=== PATIENT | female | born 1945 | race Caucasian/White ===

== ENCOUNTER → 2020-04-08 | Outpatient (CLI) | payer MEDICARE, BC ==
--- NOTE | 2020-04-08 14:20 | XR ---
EXAMINATION TYPE: XR Hip LT and AP Pelvis DATE OF EXAM: 04/08/2020 COMPARISON: None HISTORY: Pain TECHNIQUE: A single AP view of the pelvis is obtained. Two views of the left hip are obtained. FINDINGS: There is no acute fracture/dislocation evident in the pelvis. The hip and sacroiliac join ts appear symmetric and unremarkable. The overlying soft tissue appears unremarkable. Two views of left hip show no acute fracture or dislocation. No focal lytic or sclerotic lesion seen in the proximal left femur. The overlying soft tissue is unremarkable. Bone mineralization is redu leonel. Vacuum phenomenon present at the left sacroiliac joint. Phlebolith noted in the left hemipelvis. Calcification is present at the gluteus tendon insertion at the greater trochanter. Postop changes a re noted to the lumbosacral spine, there is spinal curvature. IMPRESSION: There is no acute fracture or dislocation in the pelvis or left hip. There may be calcif ic tendinitis. Postop changes to the lumbosacral spine, osteopenia.
--- NOTE | 2020-04-08 14:23 | XR ---
Lumbar spine HISTORY: Low back pain 3 views the lumbar spine correlated prior exam 03/12/2016 There is no significant interval change. Postop changes show stable appearance, spinal curvature, deg enerative disc change as on prior exam. Posterior fusion L3-S1 is noted. There is retrolisthesis grad e 1 L2-3 with associated loss of disc height. Anterolisthesis grade 1 L5-S1. Bone mineralization is r educed. Loss of disc height also present L5-S1. Laminectomies are present at L3, L4 and L5. IMPRESSION: Degenerative disc disease, stable postoperative findings. Osteopenia.
== END | disposition home or self-care (01) ==
LOC: RADXRMAIN 12:04
PROVIDERS: ATTEND Midwife
DX: M51.36 Other intervertebral disc degeneration, lumbar region (principal); Z98.890 Other specified postprocedural states; M85.88 Other specified disorders of bone density and structure, other site
CPT/HCPCS: 72100; 73502

== ENCOUNTER → 2021-05-07 | Outpatient (CLI) | payer MEDICARE, BC ==
--- NOTE | 2021-05-07 14:46 | MM ---
Reason for exam: clinical finding. Last mammogram was performed 10 years and 6 months ago. History: Patient is postmenopausal. Family history of breast cancer in sister at age 75 and breast cancer in paternal aunt at age 56. Indicated problem(s): palpable abnormality in the left breast. Physical Findings: Nurse Summary: 0.5cm nodule in the left breast at 3 o'clock (nurse TM). MG 3D Diag Mammo W/Cad NISA Bilateral CC and MLO view(s) were taken. Prior study comparison: November 11, 2010, bilateral digital screening mammogram. November 13, 2008, bilateral digital screening mammogram. The breast tissue is extremely dense which could obscure a lesion on mammography. There are benign appearing round vascular calcifications bilaterally. There is no discrete abnormality. These results were verbally communicated with the patient and result sheet given to the patient on 05/07/21. ASSESSMENT: Incomplete: need additional imaging evaluation, BI-RAD 0 RECOMMENDATION: Ultrasound of the left breast. (palpable)
--- NOTE | 2021-05-07 14:47 | USB ---
Reason for exam: additional evaluation requested from abnormal screening. History: Patient is postmenopausal. Family history of breast cancer in sister at age 75 and breast cancer in paternal aunt at age 56. US Breast Limited LT Left limited breast ultrasound including focal area of concern, retroareolar and axilla demonstrates no cystic or solid lesion seen. These results were verbally communicated with the patient and result sheet given to the patient on 05/07/21. ASSESSMENT: Negative, BI-RAD 1 RECOMMENDATION: Routine screening mammogram of both breasts in 1 year. Manage patient on a clinical basis.
== END | disposition home or self-care (01) ==
LOC: RADMAMWWP 10:14
PROVIDERS: ATTEND Family Medicine
DX: R92.1 Mammographic calcification found on diagnostic imaging of breast (principal); Z80.3 Family history of malignant neoplasm of breast; Z78.0 Asymptomatic menopausal state
CPT/HCPCS: 77066; 76642; G0279; 77062

== ENCOUNTER 2021-06-16 11:57 | Emergency (ER) | payer MEDICARE, BC ==
[2021-06-16 12:17] VITALS: BP 145/76; PULSE 66; RESP 18; TEMP 98.3
[2021-06-16] MEDS ORDERED: KETOROLAC 15 MG/ML 1 ML VIAL IVP STA (14:33)
[2021-06-16 14:58] LABS: Basophils # (A) 0.1 k/uL (0-0.2); Basophils % (A) 2 %; Eosinophils # (A) 0.2 k/uL (0-0.7); Eosinophils % (A) 5 %; HCT 39.9 % (34.0-46.0); HGB 12.8 gm/dL (11.4-16.0); Lymphocytes # (A) 0.4 k/uL (1.0-4.8); Lymphocytes % (A) 10 %; MCH 29.5 pg (25.0-35.0); MCHC 32.1 g/dL (31.0-37.0); MCV 91.8 fL (80.0-100.0); Mean Platelet Volume 7.1; Monocytes # (A) 0.2 k/uL (0-1.0); Monocytes % (A) 6 %; Neutrophils # (A) 3.1 k/uL (1.3-7.7); Neutrophils % (A) 76 %; Platelet Count 195 k/uL (150-450); RBC 4.35 m/uL (3.80-5.40); RDW 12.8 % (11.5-15.5); WBC 4.1 k/uL (3.8-10.6)
[2021-06-16 15:07] LABS: Albumin 3.9 g/dL (3.5-5.0); Calcium 9.4 mg/dL (8.4-10.2); Magnesium 2.2 mg/dL (1.6-2.3); Total Bilirubin 0.3 mg/dL (0.2-1.3); Total Protein 6.1 g/dL (6.3-8.2)
[2021-06-16 15:18] LABS: INR 0.9 (<1.2); Prothrombin Time 9.9 sec (9.0-12.0)
--- NOTE | 2021-06-16 15:33 | XR ---
EXAMINATION TYPE: XR chest 2V DATE OF EXAM: 06/16/2021 COMPARISON: Chest x-ray dated 08/13/2014 HISTORY: Difficulty breathing TECHNIQUE: Frontal and lateral views of the chest are obtained. FINDINGS: There is no focal air space opacity, pleural effusion, or pneumothorax seen. The cardiac silhouette size is within normal limits. Patient is rotated towards the right. Apical pleural thicken ing is again seen. Postop change noted to the lumbar spine. The osseous structures are intact. IMPRESSION: No acute cardiopulmonary process.
--- NOTE | 2021-06-16 15:34 | XR ---
AP pelvis HISTORY: Swelling, lymphedema Frontal view of the pelvis is submitted on a single image. Postop changes are noted to the lumbosacral spine. There is a spinal curvature. Bone mineralization m ildly reduced. Joint spaces and alignment appear maintained. Probable vascular calcifications noted i n the pelvis. IMPRESSION: Postop changes. Suspect low bone mineralization. Rotated exam.
[2021-06-16] MEDS ORDERED: SODIUM CHLORIDE 0.9% 500 ML 500 ML IV ONE (15:35)
--- NOTE | 2021-06-16 15:36 | XR ---
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 Retrolisthesis grade 1 L2-3. Lumbar vertebral bodies show preserved height. Bone mineralization i s reduced. Intervertebral disc height is also reduced L2-3 through L5-S1, spondylosis is present lauren cially at L2-3. Multilevel laminectomies present L3-L4 and L5. IMPRESSION: Degenerative disc disease, scoliosis, postop change. Low bone mineralization. Retrolisthe sis L2-3. Additional findings above.
--- NOTE | 2021-06-16 15:43 | ED ---
General Adult HPI - General Chief complaint: Recheck/Abnormal Lab/Rx Stated complaint: lt sided swelling Time Seen by Provider: 06/16/21 14:00 Source: patient, RN notes reviewed, old records reviewed Mode of arrival: ambulatory Limitations: no limitations - History of Present Illness Initial comments: This is a 75-year-old female who presents emergency Department with a mass since last Wednesday on her neck on the left anterior aspect. Patient also has some swelling to the left leg. Patient has also been a little more tired over the last week. Patient has had no fever or chills patient denies headache patient denies any numbness weakness. Patient said chest pain difficulty breathing shortness of breath. Patient has chronic lower back pain and she states that is been giving her a lot of grief lately but states nothing different than it has been. Patient denies any injury or fall. Patient denies any dysuria hematuria urinary frequency. Patient denies abdominal pain patient denies nausea vomiting diarrhea. - Related Data Home Medications Medication Instructions Recorded Confirmed Levothyroxine Sodium [Synthroid] 100 mcg PO DAILY 05/21/14 06/16/21 ALPRAZolam [Xanax] 0.5 mg PO BID PRN 12/21/14 06/16/21 Acetaminophen-Codeine 300-30mg 1 tab PO Q6H PRN 06/16/21 06/16/21 [Tylenol w/codeine #3] Amoxic-Pot Clav 875-125Mg 1 tab PO Q12H 06/16/21 06/16/21 [Augmentin 875-125] Calcium Carbonate [Calcium] 600 mg PO BID 06/16/21 06/16/21 Cholecalciferol [Vitamin D3 (25 50 mcg PO DAILY 06/16/21 06/16/21 Mcg = 1000 Iu)] Cyanocobalamin (Vitamin B-12) 500 mcg PO DAILY 06/16/21 06/16/21 [Vitamin B-12] Latanoprost/Pf [Latanoprost 0.005% 1 drop BOTH EYES HS 06/16/21 06/16/21 Eye Drop] Magnesium 250 mg PO DAILY 06/16/21 06/16/21 Multivitamins, Thera [Multivitamin 1 tab PO DAILY 06/16/21 06/16/21 (formulary)] [place]-3 Fatty Acids/Fish Oil [Fish 1 cap PO DAILY 06/16/21 06/16/21 Oil 1,000 mg Softgel] Vitamin B Complex 1 cap PO DAILY 06/16/21 06/16/21 Vitamin C/Biotin [Hair, Skin and 1 tab PO DAILY 06/16/21 06/16/21 Nails] Zinc 50 mg PO DAILY 06/16/21 06/16/21 Allergies Allergy/AdvReac Type Severity Reaction Status Date / Time No Known Allergies Allergy Verified 06/16/21 17:19 Review of Systems ROS Statement: Those systems with pertinent positive or pertinent negative responses have been documented in the HPI. ROS Other: All systems not noted in ROS Statement are negative. Past Medical History Past Medical History: GERD/Reflux, Thyroid Disorder Additional Past Medical History / Comment(s): back pain History of Any Multi-Drug Resistant Organisms: None Reported Past Surgical History: Back Surgery Additional Past Surgical History / Comment(s): BACK SX-08-09-14. BILAT CATARACT SX. BLE VARICOSE VEIN SX. COLONOSCOPY. RT RETINAL SX Past Anesthesia/Blood Transfusion Reactions: No Reported Reaction Past Psychological History: Anxiety Smoking Status: Never smoker Past Alcohol Use History: None Reported Past Drug Use History: None Reported General Exam - General Exam Comments Initial Comments: GENERAL: Patient is well-developed and well-nourished. Patient is nontoxic and well- hydrated and is in no acute distress. ENT: Neck is soft and supple. No significant lymphadenopathy is noted. Oropharynx is clear. Moist mucous membranes. Neck has full range of motion without eliciting any pain. There is a mass on the left anterior aspect of the neck measuring about 3 cm in diameter. It is not tender and there is no redness EYES: The sclera were anicteric and conjunctiva were pink and moist. Extraocular movements were intact and pupils were equal round and reactive to light. Eyelids were unremarkable. PULMONARY: Unlabored respirations. Good breath sounds bilaterally. No audible rales rhonchi or wheezing was noted. CARDIOVASCULAR: There is a regular rate and rhythm without any murmurs gallops or rubs. ABDOMEN: Soft and nontender with normal bowel sounds. SKIN: Skin is clear with no lesions or rashes and otherwise unremarkable. NEUROLOGIC: Patient is alert and oriented x3. Cranial nerves II through XII are grossly intact. Motor and sensory are also intact. Normal speech, volume and content. Symmetrical smile. MUSCULOSKELETAL: Normal extremities with adequate strength and full range of motion. Patient has calf tenderness on the left and swelling to the leg with 1+ edema LYMPHATICS: No significant lymphadenopathy is noted PSYCHIATRIC: Normal psychiatric evaluation. Limitations: no limitations Course Vital Signs 06/16/21 12:13 Temperature 98.3 F Pulse Rate 66 Respiratory 18 Rate Blood Pressure 145/76 O2 Sat by Pulse 98 Oximetry Medical Decision Making - Medical Decision Making EKG shows normal sinus rhythm at 65 bpm DE interval 198 QRSs 82 QT interval 396 QTC is 411. Patient's EKG shows no ST segment elevation or depression. X-ray of the chest showed no acute abnormality. X-ray of the pelvis showed no acute normalities. X-ray lumbar spine showed no acute abnormality. CT of the soft tissues of the neck showed a large mass on the right side which appeared to be a lymph node. I spoke with Isiah the physician clinical trials assistant for Dr. Galaviz and he will follow-up with the patient tomorrow and try to get her an ENT appointment. Patient is already on Augmentin. - Lab Data Result diagrams: 06/16/21 14:48 06/16/21 14:48 Lab Results 06/16/21 06/16/21 06/16/21 Range/Units 14:48 14:48 14:48 WBC 4.1 (3.8-10.6) k/uL RBC 4.35 (3.80-5.40) m/uL Hgb 12.8 (11.4-16.0) gm/dL Hct 39.9 (34.0-46.0) % MCV 91.8 (80.0-100.0) fL MCH 29.5 (25.0-35.0) pg MCHC 32.1 (31.0-37.0) g/dL RDW 12.8 (11.5-15.5) % Plt Count 195 (150-450) k/uL MPV 7.1 Neutrophils % 76 % Lymphocytes % 10 % Monocytes % 6 % Eosinophils % 5 % Basophils % 2 % Neutrophils # 3.1 (1.3-7.7) k/uL Lymphocytes # 0.4 L (1.0-4.8) k/uL Monocytes # 0.2 (0-1.0) k/uL Eosinophils # 0.2 (0-0.7) k/uL Basophils # 0.1 (0-0.2) k/uL PT 9.9 (9.0-12.0) sec INR 0.9 (<1.2) APTT 23.0 (22.0-30.0) sec Sodium 136 L (137-145) mmol/L Potassium 4.0 (3.5-5.1) mmol/L Chloride 100 (98-107) mmol/L Carbon Dioxide 30 (22-30) mmol/L Anion Gap 6 mmol/L BUN 33 H (7-17) mg/dL Creatinine 0.76 (0.52-1.04) mg/dL Est GFR (CKD-EPI)AfAm 88 (>60 ml/min/1.73 sqM) Est GFR (CKD-EPI)NonAf 76 (>60 ml/min/1.73 sqM) Glucose 123 H (74-99) mg/dL Calcium 9.4 (8.4-10.2) mg/dL Magnesium 2.2 (1.6-2.3) mg/dL Total Bilirubin 0.3 (0.2-1.3) mg/dL AST 46 H (14-36) U/L ALT 23 (4-34) U/L Alkaline Phosphatase 54 (38-126) U/L Total Protein 6.1 L (6.3-8.2) g/dL Albumin 3.9 (3.5-5.0) g/dL Disposition Clinical Impression: Cervical lymphadenopathy Disposition: HOME SELF-CARE Condition: Good Instructions (If sedation given, give patient instructions): Lymphadenopathy (ED) Is patient prescribed a controlled substance at d/c from ED?: No Referrals: Kayden Galaviz MD [Primary Care Provider] - 1-2 days Time of Disposition: 18:36
--- NOTE | 2021-06-16 16:16 | US ---
EXAMINATION TYPE: US venous doppler duplex LE LT DATE OF EXAM: 06/16/2021 4:07 PM COMPARISON: NONE CLINICAL HISTORY: Swelling or calf pain. edema left foot and ankle SIDE PERFORMED: left TECHNIQUE: The lower extremity deep venous system is examined utilizing real time linear array sonog leisa with graded compression, doppler sonography and color-flow sonography. VESSELS IMAGED: Common Femoral Vein Deep Femoral Vein Femoral Vein Popliteal Vein Small Saphenous Vein * Proximal Calf Veins (* superficial vessels) Left Leg: no evidence of DVT IMPRESSION: 1. Left lower extremity ultrasound negative for deep venous thrombosis.
--- NOTE | 2021-06-16 17:50 | CT ---
EXAMINATION TYPE: CT soft tissue neck w con DATE OF EXAM: 06/16/2021 COMPARISON: None HISTORY: Left anterior neck swelling. CT DLP: 161.5 mGycm Automated exposure control for dose reduction was used. CONTRAST: Performed with IV Contrast, patient injected with 100 mL of Isovue 300. Images obtained from the aortic arch to the top of the orbits with IV contrast. There is no evidence of orbital mass. Orbital margins are intact. There is fairly normal aeration of the paranasal sinuses. Maxilla is intact. Nasal bone is intact. Zygomatic arches appear normal. The mandibular ring is intact. The submandibular salivary glands are fairly symmetric. The parotid glands appear symmetric. Epiglott is appears normal. The tongue appears intact. Prevertebral soft tissues are intact. Tonsils and adeno ids are within normal limits. There is no evidence of pharyngeal mass. There is normal enhancement of the carotid arteries and jugular veins. There is 4.6 cm rounded soft tissue mass at the base of the neck anteriorly on the left side. There i s anterior and medial displacement of the jugular vein and carotid artery. There is anterior displace ment of the sternocleidomastoid mastoid muscle. Mass extends to the thoracic inlet. This is consisten t with an enlarged lymph node. There is some pleural and pulmonary scarring at the lung apices bilate rally. There is no pneumothorax. IMPRESSION: Anterior left side of neck mass is probably an enlarged lymph node. No other significant adenopathy s een.
== END 2021-06-16 19:02 | disposition home or self-care (01) ==
LOC: EC 11:57
DX: R59.0 Localized enlarged lymph nodes (principal); M79.89 Other specified soft tissue disorders; K21.9 Gastro-esophageal reflux disease without esophagitis; E07.9 Disorder of thyroid, unspecified
CPT/HCPCS: 99284 ×2; 96374 ×2; 36415; 93005; 80053; 83735; 85025; 85610; 85730; 72110; 72170; 71046; 93971; 70491; J1885; Q9967

== ENCOUNTER 2021-06-21 22:13 | Inpatient (IN) | payer MEDICARE, BC ==
[2021-06-21] MEDS ORDERED: SODIUM CHLORIDE 0.9% 500 ML 500 ML IV STA (22:42)
[2021-06-21] MEDS ORDERED: KETOROLAC 15 MG/ML 1 ML VIAL IVP STA (22:42)
[2021-06-21] MEDS ORDERED: ONDANSETRON 4 MG/2 ML VIAL IVP STA (22:42)
--- NOTE | 2021-06-21 23:00 | ED ---
Nausea/Vomiting/Diarrhea HPI - General Chief complaint: Nausea/Vomiting/Diarrhea Stated complaint: weakness,vomiting Time Seen by Provider: 06/21/21 22:26 Source: patient Mode of arrival: wheelchair Limitations: no limitations - History of Present Illness MD complaint: nausea, vomiting Onset/Timin -: days(s) Description of Vomiting: food contents Associated Abdominal Pain: No Severity scale (1-10): 0 Improves with: none Worsens with: none - Related Data Home Medications Medication Instructions Recorded Confirmed Levothyroxine Sodium [Synthroid] 100 mcg PO DAILY 05/21/14 06/22/21 ALPRAZolam [Xanax] 0.5 mg PO BID PRN 12/21/14 06/22/21 Acetaminophen-Codeine 300-30mg 1 tab PO Q6H PRN 06/16/21 06/22/21 [Tylenol w/codeine #3] Amoxic-Pot Clav 875-125Mg 1 tab PO Q12H 06/16/21 06/22/21 [Augmentin 875-125] Calcium Carbonate [Calcium] 600 mg PO BID 06/16/21 06/22/21 Cholecalciferol [Vitamin D3 (25 50 mcg PO DAILY 06/16/21 06/22/21 Mcg = 1000 Iu)] Cyanocobalamin (Vitamin B-12) 500 mcg PO DAILY 06/16/21 06/22/21 [Vitamin B-12] Latanoprost/Pf [Latanoprost 0.005% 1 drop BOTH EYES HS 06/16/21 06/22/21 Eye Drop] Magnesium 250 mg PO DAILY 06/16/21 06/22/21 Multivitamins, Thera [Multivitamin 1 tab PO DAILY 06/16/21 06/22/21 (formulary)] [place]-3 Fatty Acids/Fish Oil [Fish 1 cap PO DAILY 06/16/21 06/22/21 Oil 1,000 mg Softgel] Vitamin B Complex 1 cap PO DAILY 06/16/21 06/22/21 Vitamin C/Biotin [Hair, Skin and 1 tab PO DAILY 06/16/21 06/22/21 Nails] Zinc 50 mg PO DAILY 06/16/21 06/22/21 Allergies Allergy/AdvReac Type Severity Reaction Status Date / Time No Known Allergies Allergy Verified 06/21/21 22:32 Review of Systems ROS Statement: Those systems with pertinent positive or pertinent negative responses have been documented in the HPI. ROS Other: All systems not noted in ROS Statement are negative. Constitutional: Denies: fever, chills Respiratory: Denies: cough, dyspnea Cardiovascular: Reports: edema (L ankle). Denies: chest pain, palpitations, syncope Gastrointestinal: Reports: nausea, vomiting. Denies: abdominal pain, diarrhea, hematemesis, melena, hematochezia Genitourinary: Denies: dysuria, hematuria Musculoskeletal: Reports: back pain (Chronic) Skin: Denies: rash Neurological: Denies: headache, weakness, numbness Past Medical History Past Medical History: GERD/Reflux, Thyroid Disorder Additional Past Medical History / Comment(s): back pain History of Any Multi-Drug Resistant Organisms: None Reported Past Surgical History: Back Surgery Additional Past Surgical History / Comment(s): BACK SX-08-09-14. BILAT CATARACT SX. BLE VARICOSE VEIN SX. COLONOSCOPY. RT RETINAL SX Past Anesthesia/Blood Transfusion Reactions: No Reported Reaction Past Psychological History: Anxiety Smoking Status: Never smoker Past Alcohol Use History: None Reported Past Drug Use History: None Reported - Past Family History Father Family Medical History: CVA/TIA, Dementia, Thyroid Disorder Mother Family Medical History: Dementia, Hypertension General Exam Limitations: no limitations General appearance: alert, in no apparent distress Head exam: Present: atraumatic, normocephalic Eye exam: Present: normal appearance. Absent: scleral icterus, conjunctival injection Neck exam: Present: full ROM, other (Left anterior neck swelling underlying the sternocleidomastoid). Absent: meningismus Respiratory exam: Present: normal lung sounds bilaterally. Absent: respiratory distress, wheezes, rales, rhonchi, stridor Cardiovascular Exam: Present: regular rate, normal rhythm, normal heart sounds. Absent: systolic murmur, diastolic murmur, rubs, gallop GI/Abdominal exam: Present: soft. Absent: distended, tenderness, guarding, rebound, rigid, mass Extremities exam: Present: normal inspection, normal capillary refill. Absent: pedal edema, calf tenderness Back exam: Present: normal inspection. Absent: CVA tenderness (R), CVA tenderness (L) Neurological exam: Present: alert Skin exam: Present: warm, dry, intact, normal color. Absent: rash Course Vital Signs 07/24/21 07/24/21 07/25/21 22:20 23:38 04:00 Temperature 98.6 F Pulse Rate 70 71 88 Respiratory 16 16 17 Rate Blood Pressure 195/97 147/62 149/88 O2 Sat by Pulse 98 98 98 Oximetry 06/22/21 06:43 Temperature Pulse Rate 72 Respiratory 17 Rate Blood Pressure 137/77 O2 Sat by Pulse 98 Oximetry Medical Decision Making - Lab Data Result diagrams: 06/22/21 04:42 06/22/21 04:41 Lab Results 06/21/21 06/21/21 06/21/21 Range/Units 22:53 22:53 23:49 WBC 8.0 (3.8-10.6) k/uL RBC 4.15 (3.80-5.40) m/uL Hgb 13.0 (11.4-16.0) gm/dL Hct 37.1 (34.0-46.0) % MCV 89.2 (80.0-100.0) fL MCH 31.3 (25.0-35.0) pg MCHC 35.1 (31.0-37.0) g/dL RDW 12.1 (11.5-15.5) % Plt Count 221 (150-450) k/uL MPV 7.5 Neutrophils % 90 % Lymphocytes % 4 % Monocytes % 5 % Eosinophils % 0 % Basophils % 0 % Neutrophils # 7.2 (1.3-7.7) k/uL Lymphocytes # 0.3 L (1.0-4.8) k/uL Monocytes # 0.4 (0-1.0) k/uL Eosinophils # 0.0 (0-0.7) k/uL Basophils # 0.0 (0-0.2) k/uL Sodium 118 L* (137-145) mmol/L Potassium 3.9 (3.5-5.1) mmol/L Chloride 84 L (98-107) mmol/L Carbon Dioxide 24 (22-30) mmol/L Anion Gap 10 mmol/L BUN 10 (7-17) mg/dL Creatinine 0.46 L (0.52-1.04) mg/dL Est GFR (CKD-EPI)AfAm >90 (>60 ml/min/1.73 sqM) Est GFR (CKD-EPI)NonAf >90 (>60 ml/min/1.73 sqM) Glucose 139 H (74-99) mg/dL Calcium 9.0 (8.4-10.2) mg/dL Total Bilirubin 1.0 (0.2-1.3) mg/dL AST 71 H (14-36) U/L ALT 41 H (4-34) U/L Alkaline Phosphatase 64 (38-126) U/L Total Protein 6.7 (6.3-8.2) g/dL Albumin 4.2 (3.5-5.0) g/dL Amylase 62 (30-110) U/L Lipase 47 (23-300) U/L Urine Color Yellow Urine Appearance Cloudy H (Clear) Urine pH 7.0 (5.0-8.0) Ur Specific [place] 1.014 (1.001-1.035) Urine Protein Trace H (Negative) Urine Glucose (UA) 2+ H (Negative) Urine Ketones Negative (Negative) Urine Blood Small H (Negative) Urine Nitrite Negative (Negative) Urine Bilirubin Negative (Negative) Urine Urobilinogen <2.0 (<2.0) mg/dL Ur Leukocyte Esterase Large H (Negative) Urine RBC 6 H (0-5) /hpf Urine WBC 3 (0-5) /hpf Ur Squamous Epith Cells 2 (0-4) /hpf Urine Bacteria Rare H (None) /hpf Urine Mucus Rare H (None) /hpf - EKG Data -: EKG Interpreted by Sd EKG shows normal: sinus rhythm, axis (Normal), intervals (Normal), QRS complexes (Normal), ST-T waves (Normal) Rate: normal (Rate 67 bpm) Interpretation: normal EKG Disposition Clinical Impression: Cervical lymphadenopathy, Hyponatremia Disposition: ADMITTED IP TO THIS [facility] Condition: Serious Is patient prescribed a controlled substance at d/c from ED?: No
[2021-06-21 23:14] LABS: Basophils % (A) 0 %; Eosinophils % (A) 0 %; HCT 37.1 % (34.0-46.0); Lymphocytes # (A) 0.3 k/uL (1.0-4.8); Lymphocytes % (A) 4 %; MCH 31.3 pg (25.0-35.0); MCHC 35.1 g/dL (31.0-37.0); MCV 89.2 fL (80.0-100.0); Mean Platelet Volume 7.5; Monocytes # (A) 0.4 k/uL (0-1.0); Monocytes % (A) 5 %; Neutrophils # (A) 7.2 k/uL (1.3-7.7); Neutrophils % (A) 90 %; Platelet Count 221 k/uL (150-450); RBC 4.15 m/uL (3.80-5.40); RDW 12.1 % (11.5-15.5)
[2021-06-21 23:29] LABS: ALT 41 U/L (4-34); AST 71 U/L (14-36); African American GFR (CKD) >90 (>60 ml/min/1.73 sqM); Albumin 4.2 g/dL (3.5-5.0); Alkaline Phosphatase 64 U/L (38-126); Amylase 62 U/L (30-110); Anion Gap 10 mmol/L; Blood Urea Nitrogen 10 mg/dL (7-17); Carbon Dioxide 24 mmol/L (22-30); Chloride 84 mmol/L (98-107); Glucose 139 mg/dL (74-99); Lipase 47 U/L (23-300); Non-African American GFR(CKD) >90 (>60 ml/min/1.73 sqM); Potassium 3.9 mmol/L (3.5-5.1); Total Protein 6.7 g/dL (6.3-8.2)
[2021-06-21 23:44] LABS: Sodium 118 mmol/L (137-145)
[2021-06-22] MEDS ORDERED: SODIUM CHLORIDE 0.9% 500 ML 500 ML IV STA (00:08)
[2021-06-22] MEDS ORDERED: NALOXONE 0.4 MG/ML 1 ML VIAL IV PRN (00:10)
[2021-06-22] MEDS ORDERED: ALPRAZolam 0.5 MG TAB PO PRN (00:12)
[2021-06-22] MEDS ORDERED: AMOXIC-POT CLAV 875-125MG 1 EACH TAB PO SCH (00:30)
[2021-06-22 00:33] LABS: Appearance,Urine Cloudy (Clear); Bacteria,Urine Rare /hpf; Bilirubin,Urine Negative (Negative); Blood,Urine Small (Negative); Color,Urine Yellow; Glucose,Urine (UA) 2+ (Negative); Ketones,Urine Negative (Negative); Leukocyte Esterase,Urine Large (Negative); Mucus,Urine Rare /hpf; Nitrite,Urine Negative (Negative); Protein,Urine Trace (Negative); RBC,Urine 6 /hpf (0-5); Specific Gravity,Urine 1.014 (1.001-1.035); Squamous Epithelial Cell,Urine 2 /hpf (0-4); Urobilinogen,Urine <2.0 mg/dL (<2.0); WBC,Urine 3 /hpf (0-5)
[2021-06-22] MEDS: SODIUM CHLORIDE 0.9% 1,000 ML IV SCH ×3 (01:47→17:59)
[2021-06-22 04:54] LABS: Basophils % (A) 0 %; Eosinophils # (A) 0.1 k/uL (0-0.7); Eosinophils % (A) 1 %; HGB 11.8 gm/dL (11.4-16.0); Lymphocytes # (A) 0.4 k/uL (1.0-4.8); Lymphocytes % (A) 7 %; MCHC 34.6 g/dL (31.0-37.0); MCV 89.7 fL (80.0-100.0); Mean Platelet Volume 8.2; Monocytes # (A) 0.4 k/uL (0-1.0); Monocytes % (A) 7 %; Neutrophils # (A) 4.8 k/uL (1.3-7.7); Neutrophils % (A) 85 %; Platelet Count 184 k/uL (150-450); RBC 3.79 m/uL (3.80-5.40); RDW 12.1 % (11.5-15.5); WBC 5.6 k/uL (3.8-10.6)
[2021-06-22 05:06] LABS: African American GFR (CKD) >90 (>60 ml/min/1.73 sqM); Anion Gap 4 mmol/L; Blood Urea Nitrogen 10 mg/dL (7-17); Calcium 8.5 mg/dL (8.4-10.2); Carbon Dioxide 27 mmol/L (22-30); Chloride 87 mmol/L (98-107); Glucose 107 mg/dL (74-99); Non-African American GFR(CKD) 89 (>60 ml/min/1.73 sqM)
[2021-06-22 05:14] LABS: Sodium 118 mmol/L (137-145)
[2021-06-22] MEDS: LEVOTHYROXINE 100 MCG TAB PO SCH (06:55)
--- NOTE | 2021-06-22 09:11 | P.HPIM ---
History of Present Illness Patient when 75-year-old the female came to the hospital with complaints of generalized weakness has not been able to eat or drink lately for few days. Patient is on antibiotics not sure reason for antibiotics. Patient was having n ausea vomiting, patient is found to be severely hyponatremic with serum sodium of 118. Patient also has swelling in the left leg for which patient had a Doppler couple days ago which did not show any DVT. Patient has cervical lymphadenopathy for which patient is supposed to get biopsy early in the month of June. Since that lymphadenopathy patient has not been eating or drinking very well. Patient was admitted and started on IV fluids. Urine osmolality seromuscular day along with urine random sodium urine random creatinine were ordered. Results of which are pending patient has mildly elevated liver enzymes. REVIEW OF SYSTEMS: CONSTITUTIONAL: No fever, no malaise, no fatigue. HEENT: No recent visual problems or hearing problems. Denied any sore throat. CARDIOVASCULAR: No chest pain, orthopnea, PND, no palpitations, no syncope. PULMONARY: No shortness of breath, no cough, no hemoptysis. GASTROINTESTINAL: As mentioned in HPI NEUROLOGICAL: No headaches, no weakness, no numbness. HEMATOLOGICAL: Denies any bleeding or petechiae. GENITOURINARY: Denies any burning micturition, frequency, or urgency. MUSCULOSKELETAL/RHEUMATOLOGICAL: Denies any joint pain, swelling, or any muscle pain. ENDOCRINE: Denies any polyuria or polydipsia. The rest of the 14-point review of systems is negative. PHYSICAL EXAMINATION: GENERAL: The patient is alert and oriented x3, not in any acute distress. Thin built HEENT: Pupils are round and equally reacting to light. EOMI. No scleral icterus. No conjunctival pallor. Normocephalic, atraumatic. No pharyngeal erythema. No thyromegaly. CARDIOVASCULAR: S1 and S2 present. No murmurs, rubs, or gallops. PULMONARY: Chest is clear to auscultation, no wheezing or crackles. ABDOMEN: Soft, nontender, nondistended, normoactive bowel sounds. No palpable organomegaly. MUSCULOSKELETAL: No joint swelling or deformity. EXTREMITIES: No cyanosis, clubbing, Ling in left lower extremity NEUROLOGICAL: Gross neurological examination did not reveal any focal deficits. SKIN: No rashes. Assessment and plan -Severe hyponatremia probably multifactorial and is a competent of hyperemic hyponatremia along with possible ascites from cancer workup as mentioned above will add TSH. Nephrology was consulted. We will continue with IV fluids for now will restrict free water intake. -Cervical lymph adenopathy general surgery will be consulted for possible biopsy -Mildly elevated liver enzymes/transaminitis no further workup business we will repeat liver enzymes again tomorrow -Left lower extremity swelling ruled out DVT -Asymptomatic bacteriuria will not require any antibiotics -Hypothyroidism -epigastric esophageal reflux disease DVT prophylaxis: Lovenox Past Medical History Past Medical History: GERD/Reflux, Thyroid Disorder Additional Past Medical History / Comment(s): back pain History of Any Multi-Drug Resistant Organisms: None Reported Past Surgical History: Back Surgery Additional Past Surgical History / Comment(s): BACK SX-08-09-14. BILAT CATARACT SX. BLE VARICOSE VEIN SX. COLONOSCOPY. RT RETINAL SX Past Anesthesia/Blood Transfusion Reactions: No Reported Reaction Past Psychological History: Anxiety Smoking Status: Never smoker Past Alcohol Use History: None Reported Past Drug Use History: None Reported Medications and Allergies Home Medications Medication Instructions Recorded Confirmed Type Levothyroxine Sodium [Synthroid] 100 mcg PO DAILY 05/21/14 06/22/21 History ALPRAZolam [Xanax] 0.5 mg PO BID PRN 12/21/14 06/22/21 History Acetaminophen-Codeine 300-30mg 1 tab PO Q6H PRN 06/16/21 06/22/21 History [Tylenol w/codeine #3] Amoxic-Pot Clav 875-125Mg 1 tab PO Q12H 06/16/21 06/22/21 History [Augmentin 875-125] Calcium Carbonate [Calcium] 600 mg PO BID 06/16/21 06/22/21 History Cholecalciferol [Vitamin D3 (25 50 mcg PO DAILY 06/16/21 06/22/21 History Mcg = 1000 Iu)] Cyanocobalamin (Vitamin B-12) 500 mcg PO DAILY 06/16/21 06/22/21 History [Vitamin B-12] Latanoprost/Pf [Latanoprost 0.005% 1 drop BOTH EYES HS 06/16/21 06/22/21 History Eye Drop] Magnesium 250 mg PO DAILY 06/16/21 06/22/21 History Multivitamins, Thera [Multivitamin 1 tab PO DAILY 06/16/21 06/22/21 History (formulary)] [place]-3 Fatty Acids/Fish Oil [Fish 1 cap PO DAILY 06/16/21 06/22/21 History Oil 1,000 mg Softgel] Vitamin B Complex 1 cap PO DAILY 06/16/21 06/22/21 History Vitamin C/Biotin [Hair, Skin and 1 tab PO DAILY 06/16/21 06/22/21 History Nails] Zinc 50 mg PO DAILY 06/16/21 06/22/21 History Allergies Allergy/AdvReac Type Severity Reaction Status Date / Time No Known Allergies Allergy Verified 06/21/21 22:32 Physical Exam Vitals: Vital Signs Temp Pulse Pulse Resp BP BP Pulse Ox 06/22/21 08:00 98.6 F 67 16 153/64 97 06/22/21 06:43 72 17 137/77 98 06/22/21 04:00 88 17 149/88 98 06/21/21 23:38 71 16 147/62 98 06/21/21 22:20 98.6 F 70 16 195/97 98 Intake and Output 06/21/21 06/22/21 06/22/21 22:59 06:59 14:59 Other: Weight 49.895 kg Results CBC & Chem 7: 06/22/21 04:42 06/22/21 04:41 Labs: Abnormal Lab Results - Last 24 Hours (Table) 06/21/21 06/21/21 06/21/21 Range/Units 22:53 22:53 23:49 RBC (3.80-5.40) m/uL Lymphocytes # 0.3 L (1.0-4.8) k/uL Sodium 118 L* (137-145) mmol/L Chloride 84 L (98-107) mmol/L Creatinine 0.46 L (0.52-1.04) mg/dL Glucose 139 H (74-99) mg/dL AST 71 H (14-36) U/L ALT 41 H (4-34) U/L Urine Appearance Cloudy H (Clear) Urine Protein Trace H (Negative) Urine Glucose (UA) 2+ H (Negative) Urine Blood Small H (Negative) Ur Leukocyte Esterase Large H (Negative) Urine RBC 6 H (0-5) /hpf Urine Bacteria Rare H (None) /hpf Urine Mucus Rare H (None) /hpf 06/22/21 06/22/21 Range/Units 04:41 04:42 RBC 3.79 L (3.80-5.40) m/uL Lymphocytes # 0.4 L (1.0-4.8) k/uL Sodium 118 L* (137-145) mmol/L Chloride 87 L (98-107) mmol/L Creatinine (0.52-1.04) mg/dL Glucose 107 H (74-99) mg/dL AST (14-36) U/L ALT (4-34) U/L Urine Appearance (Clear) Urine Protein (Negative) Urine Glucose (UA) (Negative) Urine Blood (Negative) Ur Leukocyte Esterase (Negative) Urine RBC (0-5) /hpf Urine Bacteria (None) /hpf Urine Mucus (None) /hpf
[2021-06-22] MEDS: ONDANSETRON 4 MG/2 ML VIAL IVP PRN (09:59)
[2021-06-22] MEDS: polyethylene glycoL 3350 17 GM POWD.PACK PO PRN (10:00)
[2021-06-22] MEDS: KETOROLAC 15 MG/ML 1 ML VIAL IVP PRN ×3 (10:00→22:32)
[2021-06-22] MEDS: FAMOTIDINE 20 MG TAB PO SCH ×2 (10:01→20:10)
[2021-06-22] MEDS: CALCIUM CARBONATE 500 MG CHEWABLE PO SCH ×2 (10:01→20:10)
[2021-06-22] MEDS: ENOXAPARIN 30 MG/0.3 ML SYRINGE SQ SCH (10:01)
[2021-06-22] MEDS: MAGNESIUM OXIDE 400 MG TAB PO SCH (10:01)
--- NOTE | 2021-06-22 10:36 | P.GSCN ---
History of Present Illness Consult date: 06/22/21 Reason for Consult: Left cervical lymphadenopathy History of present illness: This a 75-year-old female who is admitted to the hospital for hyponatremia. Patient is noted to have a left cervical lymphadenopathy. She had a CAT scan which shows a 4.6 cm left cervical lymph node. Patient has some compressive symptoms from this Past Medical History Past Medical History: GERD/Reflux, Thyroid Disorder Additional Past Medical History / Comment(s): back pain History of Any Multi-Drug Resistant Organisms: None Reported Past Surgical History: Back Surgery Additional Past Surgical History / Comment(s): BACK SX-08-09-14. BILAT CATARACT SX. BLE VARICOSE VEIN SX. COLONOSCOPY. RT RETINAL SX Past Anesthesia/Blood Transfusion Reactions: No Reported Reaction Smoking Status: Never smoker Medications and Allergies Home Medications Medication Instructions Recorded Confirmed Type Levothyroxine Sodium [Synthroid] 100 mcg PO DAILY 05/21/14 06/22/21 History ALPRAZolam [Xanax] 0.5 mg PO BID PRN 12/21/14 06/22/21 History Acetaminophen-Codeine 300-30mg 1 tab PO Q6H PRN 06/16/21 06/22/21 History [Tylenol w/codeine #3] Amoxic-Pot Clav 875-125Mg 1 tab PO Q12H 06/16/21 06/22/21 History [Augmentin 875-125] Calcium Carbonate [Calcium] 600 mg PO BID 06/16/21 06/22/21 History Cholecalciferol [Vitamin D3 (25 50 mcg PO DAILY 06/16/21 06/22/21 History Mcg = 1000 Iu)] Cyanocobalamin (Vitamin B-12) 500 mcg PO DAILY 06/16/21 06/22/21 History [Vitamin B-12] Latanoprost/Pf [Latanoprost 0.005% 1 drop BOTH EYES HS 06/16/21 06/22/21 History Eye Drop] Magnesium 250 mg PO DAILY 06/16/21 06/22/21 History Multivitamins, Thera [Multivitamin 1 tab PO DAILY 06/16/21 06/22/21 History (formulary)] [place]-3 Fatty Acids/Fish Oil [Fish 1 cap PO DAILY 06/16/21 06/22/21 History Oil 1,000 mg Softgel] Vitamin B Complex 1 cap PO DAILY 06/16/21 06/22/21 History Vitamin C/Biotin [Hair, Skin and 1 tab PO DAILY 06/16/21 06/22/21 History Nails] Zinc 50 mg PO DAILY 06/16/21 06/22/21 History Allergies Allergy/AdvReac Type Severity Reaction Status Date / Time No Known Allergies Allergy Verified 06/21/21 22:32 Surgical - Exam Vital Signs Temp Pulse Resp BP Pulse Ox 98.6 F 70 16 195/97 98 06/21/21 22:20 06/21/21 22:20 06/21/21 22:20 06/21/21 22:20 06/21/21 22:20 - General well developed, no distress - Eyes PERRL - ENT normal pinna - Neck 4 cm mass mid left anterior neck - Abdomen Abdomen: soft, non tender Results - Labs 06/22/21 04:42 06/22/21 04:41 Abnormal Lab Results - Last 24 Hours (Table) 06/21/21 06/21/21 06/21/21 Range/Units 22:53 22:53 23:49 RBC (3.80-5.40) m/uL Lymphocytes # 0.3 L (1.0-4.8) k/uL Sodium 118 L* (137-145) mmol/L Chloride 84 L (98-107) mmol/L Creatinine 0.46 L (0.52-1.04) mg/dL Glucose 139 H (74-99) mg/dL AST 71 H (14-36) U/L ALT 41 H (4-34) U/L Urine Appearance Cloudy H (Clear) Urine Protein Trace H (Negative) Urine Glucose (UA) 2+ H (Negative) Urine Blood Small H (Negative) Ur Leukocyte Esterase Large H (Negative) Urine RBC 6 H (0-5) /hpf Urine Bacteria Rare H (None) /hpf Urine Mucus Rare H (None) /hpf 06/22/21 06/22/21 Range/Units 04:41 04:42 RBC 3.79 L (3.80-5.40) m/uL Lymphocytes # 0.4 L (1.0-4.8) k/uL Sodium 118 L* (137-145) mmol/L Chloride 87 L (98-107) mmol/L Creatinine (0.52-1.04) mg/dL Glucose 107 H (74-99) mg/dL AST (14-36) U/L ALT (4-34) U/L Urine Appearance (Clear) Urine Protein (Negative) Urine Glucose (UA) (Negative) Urine Blood (Negative) Ur Leukocyte Esterase (Negative) Urine RBC (0-5) /hpf Urine Bacteria (None) /hpf Urine Mucus (None) /hpf Diabetes panel 06/21/21 06/22/21 Range/Units 22:53 04:41 Sodium 118 L* 118 L* (137-145) mmol/L Potassium 3.9 4.0 (3.5-5.1) mmol/L Chloride 84 L 87 L (98-107) mmol/L Carbon Dioxide 24 27 (22-30) mmol/L BUN 10 10 (7-17) mg/dL Creatinine 0.46 L 0.58 (0.52-1.04) mg/dL Glucose 139 H 107 H (74-99) mg/dL Calcium 9.0 8.5 (8.4-10.2) mg/dL AST 71 H (14-36) U/L ALT 41 H (4-34) U/L Alkaline Phosphatase 64 (38-126) U/L Total Protein 6.7 (6.3-8.2) g/dL Albumin 4.2 (3.5-5.0) g/dL Calcium panel 06/21/21 06/22/21 Range/Units 22:53 04:41 Calcium 9.0 8.5 (8.4-10.2) mg/dL Albumin 4.2 (3.5-5.0) g/dL Pituitary panel 06/21/21 06/22/21 Range/Units 22:53 04:41 Sodium 118 L* 118 L* (137-145) mmol/L Potassium 3.9 4.0 (3.5-5.1) mmol/L Chloride 84 L 87 L (98-107) mmol/L Carbon Dioxide 24 27 (22-30) mmol/L BUN 10 10 (7-17) mg/dL Creatinine 0.46 L 0.58 (0.52-1.04) mg/dL Glucose 139 H 107 H (74-99) mg/dL Calcium 9.0 8.5 (8.4-10.2) mg/dL Adrenal panel 07/24/21 07/25/21 Range/Units 22:53 04:41 Sodium 118 L* 118 L* (137-145) mmol/L Potassium 3.9 4.0 (3.5-5.1) mmol/L Chloride 84 L 87 L (98-107) mmol/L Carbon Dioxide 24 27 (22-30) mmol/L BUN 10 10 (7-17) mg/dL Creatinine 0.46 L 0.58 (0.52-1.04) mg/dL Glucose 139 H 107 H (74-99) mg/dL Calcium 9.0 8.5 (8.4-10.2) mg/dL Total Bilirubin 1.0 (0.2-1.3) mg/dL AST 71 H (14-36) U/L ALT 41 H (4-34) U/L Alkaline Phosphatase 64 (38-126) U/L Total Protein 6.7 (6.3-8.2) g/dL Albumin 4.2 (3.5-5.0) g/dL Assessment and Plan Assessment: Left cervical lymphadenopathy. Patient's lymph node is 4.6 cm. She may be amenable to ultrasound-guided core biopsy area Dr. Kaufman will reevaluate her in the a.m.
--- NOTE | 2021-06-22 10:51 | P.NPCON ---
History of Present Illness - Reason for Consult Consult date: 06/22/21 hyponatremia - Chief Complaint Hyponatremia - History of Present Illness This is 75-year-old female seen in because of hyponatremia, sodium is 118. She is complaining of nausea vomiting or appetite for the last 3 days. Also the last few days she noted a lymph node swelling on the left lower neck. No other swelling is noted. Workup has shown normal chest x-ray, and mammogram on 05/07/2021 is unremarkable. Pelvic x-rays are unremarkable. Pap and pelvic exam not done recently and colonoscopy was 5 years ago as well as EGD at the time. No recent weight loss. No headache no diarrhea, fever chills dysuria frequency. She has chronic left leg swelling after trauma and has been eating recently was unremarkable History of Present Illness Patient when 75-year-old the female came to the hospital with complaints of generalized weakness has not been able to eat or drink lately for few days. Patient is on antibiotics not sure reason for antibiotics. Patient was having nausea vomiting, patient is found to be severely hyponatremic with serum sodium of 118. Patient also has swelling in the left leg for which patient had a Doppler couple days ago which did not show any DVT. Patient has cervical lymphadenopathy for which patient is supposed to get biopsy early in the month of June. Since that lymphadenopathy patient has not been eating or drinking very well. Patient was admitted and started on IV fluids. Urine osmolality seromuscular day along with urine random sodium urine random creatinine were ordered. Results of which are pending patient has mildly elevated liver enzymes. Past Medical History Past Medical History: GERD/Reflux, Thyroid Disorder Additional Past Medical History / Comment(s): back pain History of Any Multi-Drug Resistant Organisms: None Reported Past Surgical History: Back Surgery Additional Past Surgical History / Comment(s): BACK SX-08-09-14. BILAT CATARACT SX. BLE VARICOSE VEIN SX. COLONOSCOPY. RT RETINAL SX Past Anesthesia/Blood Transfusion Reactions: No Reported Reaction Smoking Status: Never smoker Medications and Allergies Home Medications Medication Instructions Recorded Confirmed Type Levothyroxine Sodium [Synthroid] 100 mcg PO DAILY 05/21/14 06/22/21 History ALPRAZolam [Xanax] 0.5 mg PO BID PRN 12/21/14 06/22/21 History Acetaminophen-Codeine 300-30mg 1 tab PO Q6H PRN 06/16/21 06/22/21 History [Tylenol w/codeine #3] Amoxic-Pot Clav 875-125Mg 1 tab PO Q12H 06/16/21 06/22/21 History [Augmentin 875-125] Calcium Carbonate [Calcium] 600 mg PO BID 06/16/21 06/22/21 History Cholecalciferol [Vitamin D3 (25 50 mcg PO DAILY 06/16/21 06/22/21 History Mcg = 1000 Iu)] Cyanocobalamin (Vitamin B-12) 500 mcg PO DAILY 06/16/21 06/22/21 History [Vitamin B-12] Latanoprost/Pf [Latanoprost 0.005% 1 drop BOTH EYES HS 06/16/21 06/22/21 History Eye Drop] Magnesium 250 mg PO DAILY 06/16/21 06/22/21 History Multivitamins, Thera [Multivitamin 1 tab PO DAILY 06/16/21 06/22/21 History (formulary)] [place]-3 Fatty Acids/Fish Oil [Fish 1 cap PO DAILY 06/16/21 06/22/21 History Oil 1,000 mg Softgel] Vitamin B Complex 1 cap PO DAILY 06/16/21 06/22/21 History Vitamin C/Biotin [Hair, Skin and 1 tab PO DAILY 06/16/21 06/22/21 History Nails] Zinc 50 mg PO DAILY 06/16/21 06/22/21 History Allergies Allergy/AdvReac Type Severity Reaction Status Date / Time No Known Allergies Allergy Verified 06/21/21 22:32 Physical Exam Vitals: Vital Signs Temp Pulse Pulse Resp BP BP Pulse Ox 06/22/21 08:00 98.6 F 67 16 153/64 97 06/22/21 06:43 72 17 137/77 98 06/22/21 04:00 88 17 149/88 98 06/21/21 23:38 71 16 147/62 98 06/21/21 22:20 98.6 F 70 16 195/97 98 Intake and Output 06/21/21 06/22/21 06/22/21 22:59 06:59 14:59 Other: Weight 49.895 kg 49.895 kg On examination awake alert oriented comfortable HEENT exam lymphadenopathy about 2 inches from on the left lower neck. No axillary or groin lymphadenopathy. Lungs are clear to auscultation good air entry bilaterally a chest x-ray is unremarkable Heart sounds are unremarkable for any murmur rub gallop Abdomen soft nontender no masses no organomegaly ascites masses lymphadenopathy noted Extreme exam is trace edema left lower leg Neurologically awake alert oriented Results - Lab Results Most recent lab results Calcium 8.5 mg/dL (8.4-10.2) 06/22/21 04:41 06/22/21 04:42 06/22/21 04:41 Assessment and Plan Assessment: Impression 1. 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 TSH is pending 2. Lymphadenopathy left lower neck, cause not very clear. 3. Mild anemia hemoglobin is 11.8, yesterday was 13 therefore an element of dilution. Otherwise normal CBC 4. Mildly elevated AST AST, rule out alcohol dated Recommendation 1. Check urine osmolarity urine sodium 2. Check orthostatic changes to ensure there is no volume depletion adding to the hyponatremia 3. Rule out malignancy lymphoma because of the lymphadenopathy 4. Agree with 1500 mL fluid restriction. 5. Increased protein intake Thank you for this consultation and we'll continue to follow
[2021-06-22 12:04] LABS: Glucose,Whole Blood 89 mg/dL (75-99)
[2021-06-22] MEDS: Acetaminophen-Codeine 300-30mg TAB PO PRN ×2 (13:11→21:03)
[2021-06-22 15:38] LABS: Appearance,Urine Clear (Clear); Bilirubin,Urine Negative (Negative); Blood,Urine Negative (Negative); Color,Urine Light Yellow; Glucose,Urine (UA) Negative (Negative); Ketones,Urine Negative (Negative); Leukocyte Esterase,Urine Negative (Negative); Nitrite,Urine Negative (Negative); Protein,Urine Negative (Negative); Specific Gravity,Urine 1.005 (1.001-1.035); Urobilinogen,Urine <2.0 mg/dL (<2.0)
[2021-06-22 15:42] LABS: Creatinine,Urine Random 32.9 mg/dL
[2021-06-22 18:34] LABS: Magnesium 1.6 mg/dL (1.5-2.4); Phosphorus 2.9 mg/dL (2.4-5.1); Uric Acid 1.9 mg/dL (2.9-7.7)
[2021-06-22] MEDS: LATANOPROST 0.005% OPHTH DROPS 2.5 ML BTL BOTH EYES SCH (20:11)
[2021-06-22] MEDS: SENNOSIDES 8.6 MG TAB PO PRN (21:03)
[2021-06-22 23:26] LABS: Hemoglobin A1C 6.3 % (4.0-6.0)
[2021-06-23] MEDS: ONDANSETRON 4 MG/2 ML VIAL IVP PRN ×3 (01:19→20:38)
[2021-06-23] MEDS: SODIUM CHLORIDE 0.9% 1,000 ML IV SCH ×2 (01:19→14:33)
[2021-06-23] MEDS: LEVOTHYROXINE 100 MCG TAB PO SCH (05:56)
[2021-06-23] MEDS: KETOROLAC 15 MG/ML 1 ML VIAL IVP PRN ×3 (05:57→20:37)
[2021-06-23] MEDS: MAGNESIUM OXIDE 400 MG TAB PO SCH (08:33)
[2021-06-23] MEDS: CALCIUM CARBONATE 500 MG CHEWABLE PO SCH ×2 (08:33→20:31)
[2021-06-23] MEDS: ENOXAPARIN 30 MG/0.3 ML SYRINGE SQ SCH (08:33)
[2021-06-23] MEDS: FAMOTIDINE 20 MG TAB PO SCH ×2 (08:33→20:31)
--- NOTE | 2021-06-23 11:09 | P.PN ---
Subjective Progress Note Date: 06/23/21 Principal diagnosis: Cervical lymphadenopathy Patient seen over the weekend by Dr. Riley. We were consulted for lymph node biopsy. Patient is already been seen by Dr. Varner in the outpatient setting and is scheduled for a ultrasound core biopsy by radiology on 07/01. The patient also complaining of some abdominal discomfort. Has had some constipation recently. Appetite diminished. Some nausea. Also with left leg swelling intermittently. She does not feel any masses elsewhere. Objective - Vital Signs Vital signs: Vital Signs Temp 98.2 F 06/23/21 08:00 Pulse 66 06/23/21 08:00 Resp 17 06/23/21 08:00 BP 157/78 06/23/21 08:00 Pulse Ox 99 06/23/21 08:00 Intake & Output 06/22/21 06/23/21 06/23/21 18:59 06:59 18:59 Weight 49.895 kg Other: # Voids 4 3 - Exam HEENT: Left lower cervical fullness noted consistent with lymphadenopathy seen by CAT scan Bilateral axilla and groin without palpable adenopathy Abdomen soft, nondistended, nontender Extremities: No significant edema - Labs CBC & Chem 7: 06/22/21 04:42 06/22/21 04:41 Labs: Abnormal Lab Results - Last 24 Hours (Table) 06/22/21 06/22/21 06/22/21 Range/Units 04:42 06:00 10:52 Hemoglobin A1c 6.3 H (4.0-6.0) % Osmolality 258 L (280-301) mosm/kg Uric Acid 1.9 L (2.9-7.7) mg/dL Assessment and Plan (1) Cervical lymphadenopathy Narrative/Plan: We'll consult ENT since the patient is already initiated care with them. We will remain on consultation to follow the patient's abdominal complaints. Will order chest abdomen pelvis CAT scan at this time. We'll consult radiology for percutaneous biopsy Current Visit: Yes Status: Acute Code(s): R59.0 - LOCALIZED ENLARGED LYMPH NODES SNOMED Code(s): 357597152
[2021-06-23 11:47] LABS: African American GFR (CKD) 82.4 (60.0-200.0); Albumin 3.8 g/dL (3.80-4.90); Anion Gap 9.3 mmol/L (4.00-12.00); Calcium 8.6 mg/dL (8.7-10.3); Carbon Dioxide 23.7 mmol/L (21.6-31.8); Globulin 1.9 g/dL (1.6-3.3); Non-African American GFR(CKD) 71.1 (60.0-200.0); Potassium 3.9 mmol/L (3.5-5.5); Total Bilirubin 0.7 mg/dL (0.2-1.2); Total Protein 5.7 g/dL (6.2-8.2)
[2021-06-23 11:59] LABS: INR 0.9 (<1.2); Prothrombin Time 9.9 sec (9.0-12.0)
--- NOTE | 2021-06-23 12:08 | PN ---
PROGRESS NOTE The patient is seen for followup for hyponatremia. The patient was admitted to the hospital with nausea, increased sweating, decreased oral intake and some decrease in mentation. She was found to have a sodium of 118. Blood pressure was not low. Patient was initially maintained on IV fluids. Her sodium did not change and was 118 again yesterday. We do not have any labs from today. Overall, patient states her mentation is slightly better. Urine osmolality was at 177. I do not see any IV fluids running currently. PHYSICAL EXAMINATION: Blood pressure 157/78, heart rate 66 per minute. She is afebrile. Examination of the heart S1, S2. Examination of the lungs, bilateral breath sounds are heard. Abdomen is soft, nontender. Examination of lower extremities shows trace edema left lower extremity, no edema noted in the right leg. [employer] exam grossly intact. Patient moving all 4 extremities. LABS: From June 22 sodium 118, potassium 4.0, creatinine 0.5, hemoglobin 11.8, urine osmolality 177, uric acid of 1.9. ASSESSMENT: 1. Hyponatremia possibly initially hypovolemic. The patient was maintained on normal saline. If her sodium has worsened then it is most likely SIADH versus tea and toast syndrome. Her urine osmolality is on the lower side. Patient is encouraged to increase oral protein intake. We will check a stat sodium level. I will hold off on the fluids until the serum sodium is back from today. Uric acid is on the lower side. 2. Nausea, status post recent EGD according to the patient. 3. Lymphadenopathy. Etiology not clear. PLAN: Check stat serum sodium. Hold IV fluids until sodium is back. Encourage increased oral protein intake. Continue with Zofran for now. MMODL / IJN: [id number] /
[2021-06-23] MEDS: DEXTROSE 5%-0.45% NACL 1,000 ML IV SCH ×2 (14:35→20:33)
[2021-06-23] MEDS: LATANOPROST 0.005% OPHTH DROPS 2.5 ML BTL BOTH EYES SCH (20:32)
[2021-06-24] MEDS: KETOROLAC 15 MG/ML 1 ML VIAL IVP PRN ×3 (02:31→22:20)
[2021-06-24] MEDS: DEXTROSE 5%-0.45% NACL 1,000 ML IV SCH (04:11)
[2021-06-24] MEDS: LEVOTHYROXINE 100 MCG TAB PO SCH (05:54)
[2021-06-24 07:49] LABS: Basophils % (A) 1 %; Eosinophils # (A) 0.2 k/uL (0-0.7); Eosinophils % (A) 7 %; HCT 34.1 % (34.0-46.0); HGB 11.4 gm/dL (11.4-16.0); Lymphocytes # (A) 0.3 k/uL (1.0-4.8); Lymphocytes % (A) 10 %; MCHC 33.5 g/dL (31.0-37.0); MCV 92.5 fL (80.0-100.0); Mean Platelet Volume 7.5; Monocytes # (A) 0.3 k/uL (0-1.0); Monocytes % (A) 10 %; Neutrophils # (A) 2.2 k/uL (1.3-7.7); Neutrophils % (A) 70 %; Platelet Count 185 k/uL (150-450); RBC 3.68 m/uL (3.80-5.40); RDW 12.3 % (11.5-15.5); WBC 3.2 k/uL (3.8-10.6)
[2021-06-24 08:17] LABS: ALT 57 U/L (4-34); AST 63 U/L (14-36); African American GFR (CKD) >90 (>60 ml/min/1.73 sqM); Albumin 2.9 g/dL (3.5-5.0); Albumin/Globulin Ratio 1.3; Alkaline Phosphatase 51 U/L (38-126); Anion Gap 1 mmol/L; Blood Urea Nitrogen 14 mg/dL (7-17); Calcium 8.8 mg/dL (8.4-10.2); Carbon Dioxide 29 mmol/L (22-30); Chloride 104 mmol/L (98-107); Globulin 2.2 g/dL; Glucose 88 mg/dL (74-99); Non-African American GFR(CKD) 79 (>60 ml/min/1.73 sqM); Potassium 4.2 mmol/L (3.5-5.1); Sodium 134 mmol/L (137-145); Total Bilirubin 0.5 mg/dL (0.2-1.3); Total Protein 5.1 g/dL (6.3-8.2)
[2021-06-24] MEDS: ENOXAPARIN 40 MG/0.4 ML SYRINGE SQ SCH (08:31)
[2021-06-24] MEDS: Acetaminophen-Codeine 300-30mg TAB PO PRN (08:48)
[2021-06-24] MEDS: IOPAMIDOL CONTRAST (ORAL USE) VIAL PO PRN ×2 (09:01→10:02)
[2021-06-24] MEDS ORDERED: DEXTROSE 5% IN WATER 1,000 ML IV ONE (09:49)
[2021-06-24] MEDS: CALCIUM CARBONATE 500 MG CHEWABLE PO SCH ×2 (10:14→20:03)
[2021-06-24] MEDS: MAGNESIUM OXIDE 400 MG TAB PO SCH (10:14)
[2021-06-24] MEDS: FAMOTIDINE 20 MG TAB PO SCH ×2 (10:14→20:03)
--- NOTE | 2021-06-24 10:36 | P.PN ---
Progress Note - Text Progress Note Date: 06/23/21
--- NOTE | 2021-06-24 10:53 | P.PN ---
Subjective Progress Note Date: 06/23/21 Principal diagnosis: Hyponatremia Left cervical lymph node Patient when 75-year-old the female came to the hospital with complaints of generalized weakness has not been able to eat or drink lately for few days. Patient is on antibiotics not sure reason for antibiotics. Patient was having nausea vomiting, patient is found to be severely hyponatremic with serum sodium of 118. Patient also has swelling in the left leg for which patient had a Doppler couple days ago which did not show any DVT. Patient has cervical lymphadenopathy for which patient is supposed to get biopsy early in the month of June. Since that lymphadenopathy patient has not been eating or drinking v daniel well. Patient was admitted and started on IV fluids. Urine osmolality seromuscular day along with urine random sodium urine random creatinine were ordered. Results of which are pending patient has mildly elevated liver enzymes. 06/23/2021 Patient is currently sitting in the bed comfortably. Mentation is much improved now. Family is at bedside. No complaints of chest pain or shortness of breath. Patient is being continued on IV hydration with normal saline. Sodium level improved to 132 today. Gen. surgery was consulted for left cervical lymph node biopsy. Patient was already seen by Dr. Luevano in the outpatient setting and is scheduled for ultrasound core biopsy by radiology on 07/01/2021 Patient was able to try it have breakfast. Does have nausea. No episodes of vomiting. Mild Lower abdominal discomfort. Patient has been afebrile. No diarrhea. current medications reviewed. Objective - Vital Signs Vital signs: Vital Signs Temp 98.0 F 06/23/21 13:20 Pulse 72 06/23/21 13:20 Resp 17 06/23/21 13:20 BP 151/66 06/23/21 13:20 Pulse Ox 97 06/23/21 13:20 Intake & Output 06/22/21 06/23/21 06/23/21 18:59 06:59 18:59 Weight 49.895 kg Other: # Voids 4 3 3 - Exam PHYSICAL EXAMINATION: Patient is lying in the bed comfortably, no acute distress, awake alert and oriented.. HEENT: Normocephalic. Neck is supple. Pupils reactive. Nostrils clear. Oral cavity is moist. Neck reveals no JVD, carotid bruits, or thyromegaly. CHEST EXAMINATION: Trachea is central. Symmetrical expansion. Lung puente clear to auscultation and percussion. CARDIAC: Normal S1, S2 with no gallops. No murmurs ABDOMEN: Soft. Bowel sounds normal. No organomegaly. No abdominal bruits. Extremities: reveal no edema. No clubbing or cyanosis Neurologically awake, alert, oriented x3 with well-coordinated movements. No focal deficits noted Skin: No rash or skin lesions. Psychiatric: Coperative. Nonsuicidal Musculoskeletal: No joint swelling or deformity. Normal range of motion. - Labs CBC & Chem 7: 06/24/21 07:23 06/24/21 07:23 Labs: Abnormal Lab Results - Last 24 Hours (Table) 06/22/21 06/22/21 06/23/21 Range/Units 04:42 10:52 06:52 Sodium 132 L (135-145) mmol/L Hemoglobin A1c 6.3 H (4.0-6.0) % Uric Acid 1.9 L (2.9-7.7) mg/dL Calcium 8.6 L (8.7-10.3) mg/dL AST 94 H (13-35) U/L ALT 77 H (8-44) U/L Total Protein 5.7 L (6.2-8.2) g/dL 06/23/21 06/23/21 Range/Units 10:47 16:00 Sodium 130 L 133 L (135-145) mmol/L Hemoglobin A1c (4.0-6.0) % Uric Acid (2.9-7.7) mg/dL Calcium (8.7-10.3) mg/dL AST (13-35) U/L ALT (8-44) U/L Total Protein (6.2-8.2) g/dL Assessment and Plan Assessment: Severe hyponatremia likely secondary to hypovolemia. SIADH cannot be excluded.. Patient is being continued on normal saline with improvement up to 130 today. Serum osmolarity 258. Patient was encouraged with increased cellulitis intake and free water restriction. Cervical lymphadenopathy. Seen by general surgery. Patient is already scheduled for core biopsy as an outpatient on 07/01/2021 Transaminitis. Improving now Left lower extremity swelling. Chronic after trauma. Rule out DVT Hypothyroidism. On levothyroxine. TSH within normal limits. GERD DVT prophylaxis with Lovenox. Plan: Patient is being continued on IV hydration with normal saline. Sodium level is improving. Patient was encouraged with increased protein intake and follow up sodium level. Left lower extremity duplex scan to rule out DVT. Patient is scheduled for lymph node biopsy as an outpatient. General surgery and nephrology is on board. Continue to follow closely. Discussed with the patient and her family at bedside in detail. Time with Patient: Greater than 30
--- NOTE | 2021-06-24 11:46 | CT ---
EXAMINATION TYPE: CT ChestAbdPelvis w con DATE OF EXAM: 06/24/2021 INDICATION: lymphadenopathy COMPARISON: None CT DLP: 727 mGycm CONTRAST: Performed with Oral Contrast and with IV Contrast, patient injected with 100 mL of Isovue 300. TECHNIQUE: Axial images at 5 mm thick sections. Reconstructed images in the coronal plane. Delayed images through the kidneys. FINDINGS: CT CHEST: Portion of the thyroid visualized is normal. Right apical scarring appears to be present. Follow-up can be performed. No enlarged mediastinal or hilar adenopathy is evident. The ascending aorta diameter at the level of the main pulmonary artery is 3.2 cm. The main pulmonary artery diameter at the bifurcation is 2.[address] ABDOMEN: There is large intermediate density thickening surrounding the periaortic region extendin g around to the retroperitoneal region and retrocaval region. Findings are nonspecific and can be lar ge matted adenopathy. Consider retroperitoneal fibrosis. This extends to the presacral space. Liver: Normal Spleen: Normal Pancreas: Normal Adrenal glands: The adrenal glands are normal. Gallbladder: Normal Kidneys: No masses are evident. No hydronephrosis is present. No cysts are present. Delayed images were obtained through the kidneys, which remain unremarkable. Aorta: Vascular calcification is within the aorta. The aorta is displaced anteriorly with the soft t issue density. Soft tissue density surrounds the common iliac vessels to the bifurcations and interna l and external iliac vessels. Inferior vena cava: Poorly visualized due to the soft tissue density. CT PELVIS: Loops of bowel within the abdomen and pelvis are normal. There are loops of bowel which are incom pletely distended or lack oral contrast limiting their evaluation. Appendix: Not identified. No dilated tubular structure or inflammatory change is evident. Urinary bladder: Normal. Genitourinary structures: No may be the uterus is in the left hemipelvis. The adnexal regions appear clear. Osseous structures: Postsurgical changes are through the lumbar spine. No suspicious lytic or sclerot ic lesions are evident. Degenerative sacroiliac joint changes are evident. IMPRESSIONS: 1. Large soft tissue density surrounding the aorta and inferior vena cava. Consider matted adenopathy and retroperitoneal fibrosis within the differential.
--- NOTE | 2021-06-24 12:20 | P.PN ---
Subjective Progress Note Date: 06/24/21 Principal diagnosis: Cervical lymphadenopathy Patient having some abdominal discomforts today. CAT scan chest abdomen and pelvis reviewed. Patient has a large amount of retroperitoneal soft tissue likely representing adenopathy. This likely is contributing to the patient's le ft lower extremity edema. Objective - Vital Signs Vital signs: Vital Signs Temp 98.3 F 06/24/21 07:22 Pulse 65 06/24/21 07:22 Resp 16 06/24/21 07:22 BP 162/79 06/24/21 07:22 Pulse Ox 95 06/24/21 07:22 Intake & Output 06/23/21 06/24/21 06/24/21 18:59 06:59 18:59 Intake Total 480 Balance 480 Intake: Oral 480 Other: # Voids 3 4 - Exam HEENT: Left cervical adenopathy unchanged Abdomen: Soft, nondistended, mild fullness lower abdomen, minimal tenderness - Labs CBC & Chem 7: 06/24/21 07:23 06/24/21 07:23 Labs: Abnormal Lab Results - Last 24 Hours (Table) 06/23/21 06/24/21 06/24/21 Range/Units 16:00 07:23 07:23 WBC 3.2 L (3.8-10.6) k/uL RBC 3.68 L (3.80-5.40) m/uL Lymphocytes # 0.3 L (1.0-4.8) k/uL Sodium 133 L 134 L (137-145) mmol/L AST 63 H (14-36) U/L ALT 57 H (4-34) U/L Total Protein 5.1 L (6.3-8.2) g/dL Albumin 2.9 L (3.5-5.0) g/dL Assessment and Plan (1) Cervical lymphadenopathy Narrative/Plan: Await biopsies from cervical node. Consider oncology consultation. Will sign off at this point. Please call if needed. Current Visit: Yes Status: Acute Code(s): R59.0 - LOCALIZED ENLARGED LYMPH NODES SNOMED Code(s): 208919400
--- NOTE | 2021-06-24 12:39 | US ---
EXAMINATION TYPE: US venous doppler duplex LE LT DATE OF EXAM: 06/24/2021 11:19 AM COMPARISON: US 06/16/2021 CLINICAL HISTORY: Swelling. Decreased swelling left leg. SIDE PERFORMED: Left TECHNIQUE: The lower extremity deep venous system is examined utilizing real time linear array sonog leisa with graded compression, doppler sonography and color-flow sonography. VESSELS IMAGED: Common Femoral Vein Deep Femoral Vein Greater Saphenous Vein * Femoral Vein Popliteal Vein Small Saphenous Vein * Proximal Calf Veins (* superficial vessels) Left Leg: Negative for DVT IMPRESSION: Grayscale, color doppler, spectral doppler imaging performed of the deep veins of the lo wer extremities. There is normal flow, compressibility, vascular waveforms.
--- NOTE | 2021-06-24 13:50 | US ---
ULTRASOUND GUIDED CORE BIOPSY neck mass: CLINICAL HISTORY: Left neck mass FINDINGS: The procedure was explained to the patient. The risks, complications, benefits and alternatives were discussed and any questions were answered. Informed consent was obtained. Patient was placed supin e on the ultrasound table and prepped and draped in the usual sterile fashion. Utilizing a 18-gauge core biopsy needle, 3 passes were made into the requested left neck mass. Patient was stable throughout the procedure. Pathology is pending. All elements of maximal barrier and sterile technique were utilized. IMPRESSION: 1. Successful ultrasound guided core biopsy left neck mass.
--- NOTE | 2021-06-24 14:23 | PN ---
PROGRESS NOTE Patient is seen for followup for hyponatremia which appears to be hypovolemic and improved with normal saline. Serum sodium had improved to 132 following which she was started on D5W which at least did not allow the sodium to increase further but now staying at about 133-134 mEq/L. The patient states that overall she is feeling slightly better. She has been eating. No significant nausea. She continues to require Zofran. EXAMINATION: Today blood pressure 162/79, heart rate 65 per minute, she is afebrile. Examination of the heart S1, S2. Examination of the lungs, decreased breath sounds at bases. Abdomen is soft, nontender. Examination of lower extremities shows no significant edema. LAB: Show sodium 134, potassium 4.2, chloride 104, CO2 is 29, BUN 14, creatinine 0.74, hemoglobin 11.4 g/dL. ASSESSMENT: 1. Hyponatremia, appears to be hypovolemic, improved with normal saline. Patient had low urine osmolality as she had poor oral intake prior to admission. Continue with the D5W as serum sodium had increased quite rapidly. We can allow it to stay around 130 and avoid any further increase for the next couple of days. 2. Retroperitoneal soft tissue mass noted on CT scan, most likely lymphadenopathy. PLAN: Continue with D5W. Maintain good oral intake. Repeat sodium level in a.m. MMODL / IJN: [id number] /
--- NOTE | 2021-06-24 19:36 | P.PN ---
Subjective Progress Note Date: 06/24/21 Principal diagnosis: Hyponatremia Left-sided cervical lymphadenopathy 75-year-old female was admitted the hospital with significant medical history of hypothyroidism, GERD/reflux, chronic back pain, mixed and mixed anxiety and depression. She had extensive diagnostic workup in emergency department revealing significant hyponatremia, left-sided cervical lymph node enlargement, and left sided lower extremity edema. Patient was treated with gentle hydration for hyponatremia there has been a significant rise of sodium levels from 118-133 IV fluids has been changed over to D5 half-normal. Patient awaiting for interventional radiology to biopsy left lymph node enlargement. 06/24/2021 Patient seen and examined at bedside. Patient resting comfortably in bed. Fam precious at bedside. Patient continues to endorse left-sided neck swelling, and generalized weakness. Patient denies fever, chills, shortness of breath, palpitations, chest pain, abdominal pain or nausea. Patient and family provided answers regarding treatment plan. Awaiting for interventional radiology to biopsy left lymph node enlargement. Patient currently in no acute signs of distress Objective - Vital Signs Vital signs: Vital Signs Temp 98.4 F 06/24/21 14:17 Pulse 67 06/24/21 14:17 Resp 16 06/24/21 14:17 BP 153/68 06/24/21 14:17 Pulse Ox 98 06/24/21 14:17 Intake & Output 06/24/21 06/24/21 06/25/21 06:59 18:59 06:59 Intake Total 480 Balance 480 Intake: Oral 480 Other: Voiding Method Toilet # Voids 4 3 - Constitutional General appearance: Present: cooperative - EENT Eyes: Present: EOMI, PERRLA - Neck Neck: Present: lymphadenopathy (Left-sided cervical) - Respiratory Respiratory: bilateral: CTA (Anterior and posterior lung puente) - Cardiovascular Heart rate: 74 Rhythm: regular Heart sounds: normal: S1, S2 - Peripheral pulses dorsalis pedis Peripheral Pulses: bilateral: Normal radial pulse Peripheral Pulses: bilateral: Normal - Gastrointestinal General gastrointestinal: Present: normal bowel sounds - Integumentary Integumentary: Present: decreased turgor - Neurologic Neurologic: Present: CNII-XII intact - Musculoskeletal Musculoskeletal: Present: generalized weakness - Psychiatric Psychiatric: Present: A&O x's 3, appropriate affect, intact judgment & insight - Allied health notes Allied health notes reviewed: nursing - Labs CBC & Chem 7: 06/24/21 07:23 06/24/21 07:23 Labs: Abnormal Lab Results - Last 24 Hours (Table) 06/24/21 06/24/21 Range/Units 07:23 07:23 WBC 3.2 L (3.8-10.6) k/uL RBC 3.68 L (3.80-5.40) m/uL Lymphocytes # 0.3 L (1.0-4.8) k/uL Sodium 134 L (137-145) mmol/L AST 63 H (14-36) U/L ALT 57 H (4-34) U/L Total Protein 5.1 L (6.3-8.2) g/dL Albumin 2.9 L (3.5-5.0) g/dL Assessment and Plan Assessment: Hyponatremia Cervical lymphadenopathy Left lower extremity swelling chronic Hypothyroidism Chronic back pain DNR/DNI Plan: Hyponatremia continue D5 half-normal saline Cervical lymphopathy, patient is scheduled for interventional radiology for lymph node biopsy Continue home medications Continue monitor vital signs and diagnostic testing Continue medical management Further recommendations to come based on patient's clinical condition Hopeful discharge in 24-48 hours Time with Patient: Greater than 30
[2021-06-24] MEDS: LATANOPROST 0.005% OPHTH DROPS 2.5 ML BTL BOTH EYES SCH (20:04)
[2021-06-25 06:12] LABS: Mycoplasma IgG Antibody (EIA) 0.45 INDEX (<=0.90); Mycoplasma IgM Antibody 0.12 INDEX (<=0.90)
[2021-06-25] MEDS: LEVOTHYROXINE 100 MCG TAB PO SCH (06:53)
[2021-06-25 07:49] VITALS: RESP 16
[2021-06-25] MEDS: MORPHINE SULFATE 2 MG/ML SYRINGE IVP PRN ×3 (07:50→23:40)
[2021-06-25] MEDS: FAMOTIDINE 20 MG TAB PO SCH ×2 (08:29→20:57)
[2021-06-25] MEDS: polyethylene glycoL 3350 17 GM POWD.PACK PO PRN (08:29)
[2021-06-25] MEDS: CALCIUM CARBONATE 500 MG CHEWABLE PO SCH ×2 (08:29→20:57)
[2021-06-25] MEDS: MAGNESIUM OXIDE 400 MG TAB PO SCH (08:29)
[2021-06-25] MEDS: ENOXAPARIN 40 MG/0.4 ML SYRINGE SQ SCH (08:30)
[2021-06-25 10:46] LABS: Basophils # (A) 0.05 X 10*3/uL (0.00-0.10); Basophils % (A) 1.1 %; Eosinophils # (A) 0.26 X 10*3/uL (0.04-0.35); Eosinophils % (A) 5.8 %; HCT 32.8 % (37.2-46.3); HGB 10.5 g/dL (12.0-15.0); Lymphocytes # (A) 0.37 X 10*3/uL (0.90-5.00); Lymphocytes % (A) 8.3 %; MCH 29.4 pg (27.0-32.0); MCV 91.9 fL (80.0-97.0); Mean Platelet Volume 10.1 fL (9.5-12.2); Monocytes # (A) 0.45 X 10*3/uL (0.20-1.00); Monocytes % (A) 10.1 %; Neutrophils % (A) 74.3 %; Platelet Count 215 X 10*3/uL (140-440); RBC 3.57 X 10*6/uL (4.10-5.20); RDW 12.4 % (11.5-14.5); WBC 4.45 X 10*3/uL (4.50-10.00)
[2021-06-25 11:59] LABS: African American GFR (CKD) 96.9 (60.0-200.0); Albumin 3.4 g/dL (3.80-4.90); BUN/Creat Ratio 21.43 Ratio (12.00-20.00); Calcium 8.6 mg/dL (8.7-10.3); Globulin 1.7 g/dL (1.6-3.3); Non-African American GFR(CKD) 83.6 (60.0-200.0); Potassium 4.5 mmol/L (3.5-5.5); Total Bilirubin 0.4 mg/dL (0.2-1.2); Total Protein 5.1 g/dL (6.2-8.2)
[2021-06-25] MEDS: Acetaminophen-Codeine 300-30mg TAB PO PRN ×2 (12:27→20:57)
[2021-06-25] MEDS ORDERED: DEXTROSE 5% IN WATER 1,000 ML in EMPTY BAG 1 BAG IV SCH (14:00)
--- NOTE | 2021-06-25 17:10 | PN ---
PROGRESS NOTE Patient is seen for followup for hyponatremia. Patient serum sodium has increased to 134 and it has been staying in that range for that range for last 2 days. He was maintained on D5W to prevent further increase . EXAMINATION: Today patient is comfortable, awake, alert, oriented x3. Blood pressure 157/82, heart rate 89 per minute. She is afebrile. Exam of the lower extremities shows no evidence of edema. [employer]ITION [employer] MA[employer]GER exam is grossly intact. LAB: Show sodium 134, potassium 4.5, serum creatinine 0.7 mg/dL. ASSESSMENT: 1. Hyponatremia initially hypovolemic and also associated with low urine osmoles and possible tea and toast syndrome. Sodium has improved with saline administration. The patient is currently maintained on D5W to prevent further increase in her serum sodium level. I will resume the D5W while the patient is hospitalized. She can maintain good oral intake and I will discontinue the fluid restriction. 2. Retroperitoneal soft tissue mass, most likely lymphadenopathy currently being worked up. Patient also has a Vicodin lymphadenopathy which was biopsied. PLAN: Resume D5W and discontinue the fluid restriction. Repeat sodium in a.m. MMODL / IJN: [id number] /
--- NOTE | 2021-06-25 17:33 | P.PN ---
Subjective Progress Note Date: 06/25/21 Principal diagnosis: Hyponatremia Left-sided cervical lymphadenopathy 75-year-old female was admitted the hospital with significant medical history of hypothyroidism, GERD/reflux, chronic back pain, mixed and mixed anxiety and depression. She had extensive diagnostic workup in emergency department revealing significant hyponatremia, left-sided cervical lymph node enlargement, and left sided lower extremity edema. Patient was treated with gentle hydration for hyponatremia there has been a significant rise of sodium levels from 118-133 IV fluids has been changed over to D5 half-normal. Patient awaiting for interventional radiology to biopsy left lymph node enlargement. 06/24/2021 Patient seen and examined at bedside. Patient resting comfortably in bed. Fam precious at bedside. Patient continues to endorse left-sided neck swelling, and generalized weakness. Patient denies fever, chills, shortness of breath, palpitations, chest pain, abdominal pain or nausea. Patient and family provided answers regarding treatment plan. Awaiting for interventional radiology to biopsy left lymph node enlargement. Patient currently in no acute signs of distress 06/25/2021 Patient is seen and examined at bedside. Patient resting comfortably in bed. Patient underwent left cervical lymph node core biopsy yesterday without complications. Patient and family provided information regarding hyponatremia improved. Awaiting pathology report from core biopsy, consulted infectious disease for possible cervical lymphadenopathy to and to infectious process; consulted hematology oncology for recommendations regarding cervical lymphadenopathy. Patient resting in no acute signs of distress. Objective - Vital Signs Vital signs: Vital Signs Temp 98.6 F 06/25/21 14:25 Pulse 66 06/25/21 14:25 Resp 16 06/25/21 14:25 BP 128/73 06/25/21 14:25 Pulse Ox 96 06/25/21 14:25 Intake & Output 06/24/21 06/25/21 06/25/21 18:59 06:59 18:59 Other: Voiding Method Toilet Toilet # Voids 3 2 - Constitutional General appearance: Present: cooperative - EENT Eyes: Present: EOMI, PERRLA - Neck Neck: Present: lymphadenopathy (Left-sided cervical lymph node enlargement) - Respiratory Respiratory: bilateral: CTA (Anterior and posterior lung puente) - Cardiovascular Heart rate: 84 Rhythm: regular Heart sounds: normal: S1, S2 - Peripheral pulses radial pulse Peripheral Pulses: bilateral: Normal dorsalis pedis Peripheral Pulses: bilateral: Normal - Gastrointestinal General gastrointestinal: Present: normal bowel sounds, tenderness Localized gastrointestinal: tender: diffuse - Integumentary Integumentary: Present: normal turgor - Neurologic Neurologic: Present: CNII-XII intact - Musculoskeletal Musculoskeletal: Present: gait normal - Psychiatric Psychiatric: Present: A&O x's 3, appropriate affect, intact judgment & insight - Allied health notes Allied health notes reviewed: nursing - Labs CBC & Chem 7: 06/25/21 05:18 06/25/21 05:18 Labs: Abnormal Lab Results - Last 24 Hours (Table) 06/25/21 06/25/21 06/25/21 Range/Units 05:18 05:18 05:18 WBC 4.45 L (4.50-10.00) X 10*3/uL RBC 3.57 L (4.10-5.20) X 10*6/uL Hgb 10.5 L (12.0-15.0) g/dL Hct 32.8 L (37.2-46.3) % Lymphocytes # 0.37 L (0.90-5.00) X 10*3/uL Sodium 134 L (137-145) mmol/L BUN/Creatinine Ratio 21.43 H (12.00-20.00) Ratio Calcium 8.6 L (8.7-10.3) mg/dL AST 57 H (13-35) U/L ALT 62 H (8-44) U/L Total Protein 5.1 L (6.2-8.2) g/dL Albumin 3.40 L (3.80-4.90) g/dL Assessment and Plan Assessment: Hyponatremia Cervical lymphadenopathy Left lower extremity swelling chronic Hypothyroidism Chronic back pain DNR/DNI Plan: Hyponatremia, resolving with IV fluids Cervical lymphopathy, status post core biopsy of left-sided cervical lymph node Continue home medications Continue monitor vital signs and diagnostic testing Continue medical management Further recommendations to come based on patient's clinical condition Hopeful discharge in 24-48 hours Time with Patient: Greater than 30
[2021-06-25] MEDS: DEXTROSE 5% IN WATER 1,000 ML IV SCH (17:35)
--- NOTE | 2021-06-25 18:49 | P.CONS ---
History of Present Illness - Reason for Consult Consult date: 06/25/21 left cervical adenopathy Requesting physician: Isiah Kaufman - Chief Complaint confusion, progressive weakness - History of Present Illness Mrs. Albright is a very pleasant 75-year-old female who notes that she is had significant changes in her health in the last 2 weeks. When she thinks back, there have been some gradual changes over the last year in her energy levels, stamina and endurance. In the last 2 weeks though, she lost her appetite, experienced nausea and vomiting which she does not do, she also had a large mass in the left supraclavicular area show up. It was pointed out to her by a friend of hers. She notes one episode in the last few weeks of profound diaphoresis, she is not aware of any fevers. she has had a change in her bowel habits, she has had constipation, she has had take medication and still struggled to have a bowel movement, she definitely has bloating in the abdomen. She notes new pedal edema. Increase intensity of chronic low back pain. Denies difficulty swallowing, painful swallowing, shortness of breath, wheezing, palpitations, chest pain, abdominal cramping, dysuria, hematuria, hematochezia, melena, she denies any personal history of cancer, her only comorbidity is hypothyroidism. No recent illnesses otherwise. Patient is still fairly active, performance status 0-1. Review of Systems 14 point review of systems is negative except as stated in HPI Past Medical History Past Medical History: GERD/Reflux, Thyroid Disorder Additional Past Medical History / Comment(s): back pain History of Any Multi-Drug Resistant Organisms: None Reported Past Surgical History: Back Surgery Additional Past Surgical History / Comment(s): BACK SX-14. BILAT CATARACT SX. BLE VARICOSE VEIN SX. COLONOSCOPY. RT RETINAL SX Past Anesthesia/Blood Transfusion Reactions: No Reported Reaction Past Psychological History: Anxiety Smoking Status: Never smoker Past Alcohol Use History: None Reported Past Drug Use History: None Reported - Past Family History Father Family Medical History: CVA/TIA, Dementia, Thyroid Disorder Mother Family Medical History: Dementia, Hypertension Medications and Allergies Home Medications Medication Instructions Recorded Confirmed Type Levothyroxine Sodium [Synthroid] 100 mcg PO DAILY 05/21/14 06/22/21 History ALPRAZolam [Xanax] 0.5 mg PO BID PRN 12/21/14 06/22/21 History Acetaminophen-Codeine 300-30mg 1 tab PO Q6H PRN 06/16/21 06/22/21 History [Tylenol w/codeine #3] Amoxic-Pot Clav 875-125Mg 1 tab PO Q12H 06/16/21 06/22/21 History [Augmentin 875-125] Calcium Carbonate [Calcium] 600 mg PO BID 06/16/21 06/22/21 History Cholecalciferol [Vitamin D3 (25 50 mcg PO DAILY 06/16/21 06/22/21 History Mcg = 1000 Iu)] Cyanocobalamin (Vitamin B-12) 500 mcg PO DAILY 06/16/21 06/22/21 History [Vitamin B-12] Latanoprost/Pf [Latanoprost 0.005% 1 drop BOTH EYES HS 06/16/21 06/22/21 History Eye Drop] Magnesium 250 mg PO DAILY 06/16/21 06/22/21 History Multivitamins, Thera [Multivitamin 1 tab PO DAILY 06/16/21 06/22/21 History (formulary)] [place]-3 Fatty Acids/Fish Oil [Fish 1 cap PO DAILY 06/16/21 06/22/21 History Oil 1,000 mg Softgel] Vitamin B Complex 1 cap PO DAILY 06/16/21 06/22/21 History Vitamin C/Biotin [Hair, Skin and 1 tab PO DAILY 06/16/21 06/22/21 History Nails] Zinc 50 mg PO DAILY 06/16/21 06/22/21 History Allergies Allergy/AdvReac Type Severity Reaction Status Date / Time No Known Allergies Allergy Verified 06/21/21 22:32 Physical Exam Vitals: Vital Signs Temp Pulse Resp BP Pulse Ox 06/25/21 14:25 98.6 F 66 16 128/73 96 06/25/21 07:00 98.6 F 89 16 157/82 98 06/25/21 02:19 98.0 F 66 18 159/83 99 06/24/21 19:15 71 16 149/67 99 Intake and Output 06/25/21 06/25/21 06/25/21 06:59 14:59 22:59 Other: Voiding Method Toilet # Voids 2 - Constitutional General appearance: average body habitus (patient states she is always been petite), cooperative, no acute distress - EENT Eyes: anicteric sclerae, EOMI, dentition normal, normal appearance ENT: hearing grossly normal, normal oropharynx - Neck Neck: lymphadenopathy (5 cm left supraclavicular adenopathy) - Respiratory Respiratory: bilateral: CTA (no stridor) - Cardiovascular Rhythm: regular Heart sounds: normal: S1, S2 Abnormal Heart Sounds: no systolic murmur, no diastolic murmur, no rub, no S3 Gallop, no S4 Gallop, no click, no other foot Peripheral Edema: bilateral: 1+ - Gastrointestinal General gastrointestinal: no absent bowel sounds, no decreased bowel sounds, distended, no hepatomegaly, no hyperactive bowel sounds, normal bowel sounds, no organomegaly, no rigid, no scaphoid, soft, splenomegaly, no tenderness, no umbilical hernia, no ventral hernia - Integumentary Integumentary: normal - Neurologic Neurologic: CNII-XII intact - Musculoskeletal Musculoskeletal: strength equal bilaterally - Psychiatric Psychiatric: A&O x's 3, appropriate affect, intact judgment & insight Results CBC & Chem 7: 06/25/21 05:18 06/25/21 05:18 Labs: Abnormal Lab Results - Last 24 Hours (Table) 06/25/21 06/25/21 06/25/21 Range/Units 05:18 05:18 05:18 WBC 4.45 L (4.50-10.00) X 10*3/uL RBC 3.57 L (4.10-5.20) X 10*6/uL Hgb 10.5 L (12.0-15.0) g/dL Hct 32.8 L (37.2-46.3) % Lymphocytes # 0.37 L (0.90-5.00) X 10*3/uL Sodium 134 L (137-145) mmol/L BUN/Creatinine Ratio 21.43 H (12.00-20.00) Ratio Calcium 8.6 L (8.7-10.3) mg/dL AST 57 H (13-35) U/L ALT 62 H (8-44) U/L Total Protein 5.1 L (6.2-8.2) g/dL Albumin 3.40 L (3.80-4.90) g/dL CT scan - abdomen: report reviewed CT scan - chest: report reviewed CT scan - pelvis: report reviewed Venous US: report reviewed Assessment and Plan (1) Cervical lymphadenopathy Narrative/Plan: status post core biopsy, pathology pending Current Visit: Yes Status: Acute Priority: High Code(s): R59.0 - LOCALIZED ENLARGED LYMPH NODES SNOMED Code(s): 598877107 (2) Hyponatremia Narrative/Plan: improved with normal saline and fluid restrictions Current Visit: Yes Status: Acute Priority: High Code(s): E87.1 - HYPO- OSMOLALITY AND HYPONATREMIA SNOMED Code(s): 33493009 Plan: History and physical exam seems to be most consistent with a lymphoma, which we discussed as a possible cause for pt presentation and recent health changes. Explained that only pathology results can confirm this diagnosis and that is pending. They verbalized understanding that results can take 4-5 days. We also discussed that many times we will request specimen to be sent off for additional testing that isn't performed at this location and that can take additional time. They did verbalize understanding that as well. 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 She feels more mentally sharp with improvement in sodium level. Did discuss MRI brain and LP with pt because of mental status changes and possibility for disease involvement. Having a diagnosis 1st is reasonable so that most appropriate procedure can be ordered-will discuss with Dr. Milton and order a ccordingly. We discussed lymphoma in general terms/optimal scenario. Systemic treatment, some of the side effects that can be anticipated but also, the improvements patients notice-such as shrinkage of lymph nodes and decrease in symptoms. I reinforced that nothing we discussed is certain, must have pathology results for diagnosis. Time with Patient: Greater than 30
[2021-06-25] MEDS: LATANOPROST 0.005% OPHTH DROPS 2.5 ML BTL BOTH EYES SCH (20:59)
--- NOTE | 2021-06-25 22:26 | P.CONS ---
History of Present Illness - Reason for Consult Consult date: 06/25/21 Cervical lymphadenopathy Requesting physician: Isiah Kaufman - Chief Complaint weakness and swelling left side of neck x 2 weeks - History of Present Illness Patient is a 75-year female presenting to the ER 4 days ago for evaluation of generalized weakness unable to eat or drink for the last few days patient also noticed swelling to the left side of her neck and is been going on for about 2 weeks before presentation to the hospital patient denies having any URI symptoms and did not have any problem with her teeth on the left side of her jaw denies having any chest pain no shortness of breath or cough some nausea but no vomiting no abdominal pain no diarrhea denies high-grade fever with the symptom the patient was evaluated by ER physician on arrival to the ER the patient was afebrile and the patient did not have any fever in the last 4 days patient did have a normal white count mild lymphopenia patient was noted to be hyponatremic kidney function otherwise was normal liver exams are mildly elevated urine was mildly positive repeat is negative patient did have a CT of the chest abdominal pelvis shows large soft tissue density surrounding the aorta and inferior vena cava consider major lymphadenopathy and retroperitoneal fibrosis within the differential she was complaining of swelling to the lower extremity which was negative for DVT patient did have a lymph node biopsy completed last evening infectious disease was consulted today for further management dose of underlying cervical lymphadenopathy and concern for possible infectious etiology Review of Systems Positive point has been mentioned in the HPI rest of the systems are negative Past Medical History Past Medical History: GERD/Reflux, Thyroid Disorder Additional Past Medical History / Comment(s): back pain History of Any Multi-Drug Resistant Organisms: None Reported Past Surgical History: Back Surgery Additional Past Surgical History / Comment(s): BACK SX-914. BILAT CATARACT SX. BLE VARICOSE VEIN SX. COLONOSCOPY. RT RETINAL SX Past Anesthesia/Blood Transfusion Reactions: No Reported Reaction Past Psychological History: Anxiety Smoking Status: Never smoker Past Alcohol Use History: None Reported Past Drug Use History: None Reported - Past Family History Father Family Medical History: CVA/TIA, Dementia, Thyroid Disorder Mother Family Medical History: Dementia, Hypertension Medications and Allergies Home Medications Medication Instructions Recorded Confirmed Type Levothyroxine Sodium [Synthroid] 100 mcg PO DAILY 05/21/14 06/22/21 History ALPRAZolam [Xanax] 0.5 mg PO BID PRN 01/23/15 07/25/21 History Acetaminophen-Codeine 300-30mg 1 tab PO Q6H PRN 06/16/21 06/22/21 History [Tylenol w/codeine #3] Amoxic-Pot Clav 875-125Mg 1 tab PO Q12H 06/16/21 06/22/21 History [Augmentin 875-125] Calcium Carbonate [Calcium] 600 mg PO BID 06/16/21 06/22/21 History Cholecalciferol [Vitamin D3 (25 50 mcg PO DAILY 06/16/21 06/22/21 History Mcg = 1000 Iu)] Cyanocobalamin (Vitamin B-12) 500 mcg PO DAILY 06/16/21 06/22/21 History [Vitamin B-12] Latanoprost/Pf [Latanoprost 0.005% 1 drop BOTH EYES HS 06/16/21 06/22/21 History Eye Drop] Magnesium 250 mg PO DAILY 06/16/21 06/22/21 History Multivitamins, Thera [Multivitamin 1 tab PO DAILY 06/16/21 06/22/21 History (formulary)] [place]-3 Fatty Acids/Fish Oil [Fish 1 cap PO DAILY 06/16/21 06/22/21 History Oil 1,000 mg Softgel] Vitamin B Complex 1 cap PO DAILY 06/16/21 06/22/21 History Vitamin C/Biotin [Hair, Skin and 1 tab PO DAILY 06/16/21 06/22/21 History Nails] Zinc 50 mg PO DAILY 06/16/21 06/22/21 History Ondansetron [Zuplenz] 8 mg PO Q6H PRN #45 film 06/25/21 Rx Allergies Allergy/AdvReac Type Severity Reaction Status Date / Time No Known Allergies Allergy Verified 06/21/21 22:32 Physical Exam Vitals: Vital Signs Temp Pulse Resp BP Pulse Ox 06/25/21 14:25 98.6 F 66 16 128/73 96 06/25/21 07:00 98.6 F 89 16 157/82 98 06/25/21 02:19 98.0 F 66 18 159/83 99 06/24/21 19:15 71 16 149/67 99 Intake and Output 06/25/21 06/25/21 06/25/21 06:59 14:59 22:59 Other: Voiding Method Toilet # Voids 2 GENERAL DESCRIPTION: An elderly male lying in bed, no distress. No tachypnea or accessory muscle of respiration use. HEENT: Shows Pallor , no scleral icterus. Oral mucous membrane is dry. No pharyngeal erythema or thrush NECK: Trachea central, no thyromegaly. left cervical lymphadenopathy LUNGS: Unlabored breathing. Clear to auscultation anteriorly. No wheeze or crackle. HEART: S1, S2, regular rate and rhythm. No loud murmur ABDOMEN: Soft, no tenderness , guarding or rigidity, no organomegaly EXTREMITIES: No edema of feet. SKIN: No rash, no masses palpable. NEUROLOGICAL: The patient is awake, alert, oriented x3, mood and affect normal. Results CBC & Chem 7: 06/25/21 05:18 06/25/21 05:18 Labs: Abnormal Lab Results - Last 24 Hours (Table) 06/25/21 06/25/21 06/25/21 Range/Units 05:18 05:18 05:18 WBC 4.45 L (4.50-10.00) X 10*3/uL RBC 3.57 L (4.10-5.20) X 10*6/uL Hgb 10.5 L (12.0-15.0) g/dL Hct 32.8 L (37.2-46.3) % Lymphocytes # 0.37 L (0.90-5.00) X 10*3/uL Sodium 134 L (137-145) mmol/L BUN/Creatinine Ratio 21.43 H (12.00-20.00) Ratio Calcium 8.6 L (8.7-10.3) mg/dL AST 57 H (13-35) U/L ALT 62 H (8-44) U/L Total Protein 5.1 L (6.2-8.2) g/dL Albumin 3.40 L (3.80-4.90) g/dL Assessment and Plan Assessment: patient presented to hospital with generalized weakness swelling of the left side of the neck with evidence of cervical and para-aortic lymphadenopathy on the CT of the chest abdomen pelvis high clinical suspicion exists for possible lymphoma clinically not behaving as infectious etiology in this patient with no fever he does not look toxic this has been discussed in detail with the patient as well as 2 of her daughters present at the bedside, however work-up will be done for possible infectious etiology mostly EBV and CMV likely bacteria responsible for more of a generalized lymphadenopathy (1) Cervical lymphadenopathy Current Visit: Yes Status: Acute Priority: High Code(s): R59.0 - LOCALIZED ENLARGED LYMPH NODES SNOMED Code(s): 222289045 Plan: 1-will wait for lymph node biopsy to complete 2-we will check CMV EBV and toxo serology 3-no need for systemic antibiotic therapy We will follow on clinical condition and cultures to further adjust medication if needed Thank you for this consultation we will follow the patient along with you Time with Patient: Greater than 30
[2021-06-25] MEDS: ONDANSETRON 4 MG/2 ML VIAL IVP PRN (23:39)
[2021-06-25] MEDS ORDERED: LEVOTHYROXINE 100 MCG TAB ONE (23:59)
[2021-06-25] MEDS ORDERED: ALPRAZolam 0.5 MG TAB ONE (23:59)
[2021-06-26] MEDS: DEXTROSE 5% IN WATER 1,000 ML IV SCH ×3 (00:13→07:04)
[2021-06-26] MEDS: LEVOTHYROXINE 100 MCG TAB PO SCH (05:50)
[2021-06-26] MEDS: Acetaminophen-Codeine 300-30mg TAB PO PRN ×2 (05:50→11:52)
[2021-06-26] MEDS: MAGNESIUM OXIDE 400 MG TAB PO SCH (07:03)
[2021-06-26] MEDS: ENOXAPARIN 40 MG/0.4 ML SYRINGE SQ SCH (07:04)
[2021-06-26] MEDS: FAMOTIDINE 20 MG TAB PO SCH (07:04)
[2021-06-26] MEDS: CALCIUM CARBONATE 500 MG CHEWABLE PO SCH (07:04)
[2021-06-26] MEDS: SENNOSIDES 8.6 MG TAB PO PRN (07:11)
[2021-06-26] MEDS: ONDANSETRON 4 MG/2 ML VIAL IVP PRN (07:13)
[2021-06-26 07:38] VITALS: BP 165/75; PULSE 85; TEMP 97.7
[2021-06-26 09:12] LABS: Basophils # (A) 0.05 X 10*3/uL (0.00-0.10); Basophils % (A) 1.2 %; Eosinophils # (A) 0.27 X 10*3/uL (0.04-0.35); Eosinophils % (A) 6.6 %; HCT 34.4 % (37.2-46.3); HGB 11.1 g/dL (12.0-15.0); Lymphocytes # (A) 0.32 X 10*3/uL (0.90-5.00); Lymphocytes % (A) 7.8 %; MCH 29.6 pg (27.0-32.0); MCHC 32.3 g/dL (32.0-37.0); MCV 91.7 fL (80.0-97.0); Monocytes # (A) 0.43 X 10*3/uL (0.20-1.00); Monocytes % (A) 10.4 %; Neutrophils # (A) 3.03 X 10*3/uL (1.80-7.70); Neutrophils % (A) 73.5 %; Platelet Count 247 X 10*3/uL (140-440); RBC 3.75 X 10*6/uL (4.10-5.20); RDW 12.3 % (11.5-14.5); WBC 4.12 X 10*3/uL (4.50-10.00)
[2021-06-26] MEDS: polyethylene glycoL 3350 17 GM POWD.PACK PO PRN (10:03)
--- NOTE | 2021-06-26 16:28 | PN ---
PROGRESS NOTE DATE OF SERVICE: 06/26/2021 REASON FOR FOLLOWUP: ( ). INTERVAL HISTORY: The patient is afebrile. The patient is feeling better. Breathing comfortably. No chest pain, shortness of breath or cough. Nursing staff do not report any vomiting or diarrhea. PHYSICAL EXAMINATION: Blood pressure 165/75, pulse of 85, temperature 97.7. General description she is elderly female in the room in no distress. Respiratory system: Unlabored breathing, clear to auscultation anteriorly. Heart S1, S2. Regular rate and rhythm. LAB DATA: ( ) 4.1. Viral serology is currently pending. DIAGNOSTIC IMPRESSION AND PLAN: Patient with ( ) lymphadenopathy with a concern for possible lymphoma. Clinically doubt any infectious etiology. The patient is currently being evaluated closely by Oncology with outpatient followup status post biopsy. No need for any antiviral or antibiotic on discharge. Daughter at the bedside. Questions answered. MMODL / IJN: [id number] /
--- NOTE | 2021-06-26 18:30 | P.DS ---
Providers Date of admission: 06/22/21 00:10 Expected date of discharge: 06/26/21 Attending physician: Kayden Galaviz Consults: 06/22/21 07:54 Consult Physician Routine Consulting Provider: Mika Mcmanus Consult Reason/Comments: Hyponatremia Do you want consulting provider notified?: Yes 06/22/21 07:57 Consult Physician Routine Consulting Provider: Gopi Kaufman Consult Reason/Comments: Lymph node biopsy Do you want consulting provider notified?: Yes 06/23/21 13:37 Consult Physician Urgent Consulting Provider: Ezequiel Flores Consult Reason/Comments: Known to pt - poss cervical lymphnode biopsy to be done here as inpatient Do you want consulting provider notified?: Yes 06/25/21 08:05 Consult Physician Urgent Consulting Provider: Armando Milton Consult Reason/Comments: cervical lymphadenopathy Do you want consulting provider notified?: Yes 06/25/21 08:07 Consult Physician Urgent Consulting Provider: Barb Cramer Consult Reason/Comments: cervical lymphadenopathy Do you want consulting provider notified?: Yes Primary care physician: Kayden Galaviz Hospital Course: 75-year-old female was admitted the hospital with significant medical history of hypothyroidism, GERD/reflux, chronic back pain, mixed and mixed anxiety and depression. She had extensive diagnostic workup in emergency department revealing significant hyponatremia, left-sided cervical lymph node enlargement, and left sided lower extremity edema. Patient was treated with gentle hydration for hyponatremia there has been a significant rise of sodium levels from 118-134. Ultrasound-guided lymph node biopsy performed pending pathology report. Consultation with general surgery for recommendations was provided. Nephrology was consulted regarding hyponatremia for IV fluids recommendation. Hematology oncology was consult ID regarding lymphadenopathy; patient and family explained awaiting for biopsy for final diagnosis. Patient tolerated hospital stay well. Patient to follow-up with primary care in 1-2 days, patient to follow-up with hematology oncology in 1-2 weeks. Assessment: Hyponatremia, resolved with IV fluids Cervical lymphadenopathy, awaiting pathology report Left lower extremity swelling chronic, negative for DVT Hypothyroidism, continue home medications Chronic back pain, continue analgesics as needed DNR/DNI Health Concerns: Multiple comorbidities Complexity of treatment plan Pertinent Studies: CAT scan of chest abdomen pelvis Venous Doppler Procedures: Ultrasound-guided lymph node biopsy Patient Condition at Discharge: Serious Plan - Discharge Summary Discharge Rx Participant: No New Discharge Prescriptions: New Ondansetron [Zuplenz] 8 mg PO Q6H PRN #45 film PRN Reason: Nausea Continue Levothyroxine Sodium [Synthroid] 100 mcg PO DAILY ALPRAZolam [Xanax] 0.5 mg PO BID PRN PRN Reason: ANXIETY/SLEEP Latanoprost/Pf [Latanoprost 0.005% Eye Drop] 1 drop BOTH EYES HS Multivitamins, Thera [Multivitamin (formulary)] 1 tab PO DAILY Calcium Carbonate [Calcium] 600 mg PO BID Vitamin B Complex 1 cap PO DAILY Cholecalciferol [Vitamin D3 (25 Mcg = 1000 Iu)] 50 mcg PO DAILY Vitamin C/Biotin [Hair, Skin and Nails] 1 tab PO DAILY Acetaminophen-Codeine 300-30mg [Tylenol w/codeine #3] 1 tab PO Q6H PRN PRN Reason: Pain Zinc 50 mg PO DAILY Magnesium 250 mg PO DAILY Cyanocobalamin (Vitamin B-12) [Vitamin B-12] 500 mcg PO DAILY [place]-3 Fatty Acids/Fish Oil [Fish Oil 1,000 mg Softgel] 1 cap PO DAILY Discontinued Amoxic-Pot Clav 875-125Mg [Augmentin 875-125] 1 tab PO Q12H Discharge Medication List Levothyroxine Sodium [Synthroid] 100 mcg PO DAILY 05/21/14 [History] ALPRAZolam [Xanax] 0.5 mg PO BID PRN 12/21/14 [History] Acetaminophen-Codeine 300-30mg [Tylenol w/codeine #3] 1 tab PO Q6H PRN 06/16/21 [History] Calcium Carbonate [Calcium] 600 mg PO BID 06/16/21 [History] Cholecalciferol [Vitamin D3 (25 Mcg = 1000 Iu)] 50 mcg PO DAILY 06/16/21 [History] Cyanocobalamin (Vitamin B-12) [Vitamin B-12] 500 mcg PO DAILY 06/16/21 [History] Latanoprost/Pf [Latanoprost 0.005% Eye Drop] 1 drop BOTH EYES HS 06/16/21 [History] Magnesium 250 mg PO DAILY 06/16/21 [History] Multivitamins, Thera [Multivitamin (formulary)] 1 tab PO DAILY 06/16/21 [History] [place]-3 Fatty Acids/Fish Oil [Fish Oil 1,000 mg Softgel] 1 cap PO DAILY 06/16/21 [History] Vitamin B Complex 1 cap PO DAILY 06/16/21 [History] Vitamin C/Biotin [Hair, Skin and Nails] 1 tab PO DAILY 06/16/21 [History] Zinc 50 mg PO DAILY 06/16/21 [History] Ondansetron [Zuplenz] 8 mg PO Q6H PRN #45 film 06/25/21 [Rx] Follow up Appointment(s)/Referral(s): Kayden Galaviz MD [Primary Care Provider] - 07/03/21 3:10 pm Armando Milton MD [STAFF PHYSICIAN] - As Needed [facility], [NON-STAFF] - As Needed Patient Instructions/Handouts: Hyponatremia (DC) Activity/Diet/Wound Care/Special Instructions: Zofran Rx sent to pt preferred pharmacy Discharge Disposition: HOME WITH HOME HEALTH SERVICES
[2021-06-26 20:04] LABS: African American GFR (CKD) 71.5 (60.0-200.0); Albumin 3.8 g/dL (3.80-4.90); Anion Gap 10.2 mmol/L (4.00-12.00); BUN/Creat Ratio 14.44 Ratio (12.00-20.00); Calcium 8.9 mg/dL (8.7-10.3); Carbon Dioxide 25.8 mmol/L (21.6-31.8); Globulin 1.9 g/dL (1.6-3.3); Non-African American GFR(CKD) 61.7 (60.0-200.0); Potassium 4.3 mmol/L (3.5-5.5); Total Bilirubin 0.6 mg/dL (0.3-1.2); Total Protein 5.7 g/dL (6.2-8.2)
[2021-06-28 03:56] LABS: EBV-EA (IgG) 0.8 AI; EBV-EBNA(IgG) 0.6 AI; EBV-VCA (IgM) <0.2 AI
== END 2021-06-26 15:28 | disposition home health service (06) | DRG 630 ==
LOC: EC 22:13 → 5NMEDONC 06-22 00:10 → 4SSUR 06-22 06:09
PROVIDERS: ADMIT Family Medicine; ATTEND Family Medicine
PROC: 07B23ZX Excision of Left Neck Lymphatic, Percutaneous Approach, Diagnostic (ICD-10-PCS; principal; 2021-06-24)
DX: E22.2 Syndrome of inappropriate secretion of antidiuretic hormone (principal); R59.0 Localized enlarged lymph nodes; E03.9 Hypothyroidism, unspecified; E86.1 Hypovolemia; F41.9 Anxiety disorder, unspecified; G89.29 Other chronic pain; K21.9 Gastro-esophageal reflux disease without esophagitis; Z66 Do not resuscitate; Z79.890 Hormone replacement therapy; Z82.49 Family history of ischemic heart disease and other diseases of the circulatory system; F41.8 Other specified anxiety disorders; H26.9 Unspecified cataract; I83.90 Asymptomatic varicose veins of unspecified lower extremity; K59.00 Constipation, unspecified; M54.5 Low back pain; R61 Generalized hyperhidrosis; R60.0 Localized edema; D64.9 Anemia, unspecified
CPT/HCPCS: 36415; 38505; 71260; 74177; 76942; 80048; 80053; 81001; 81003; 82150; 82570; 83036; 83690; 83735; 83930; 83935; 84100; 84133; 84295; 84300; 84443; 84550; 85025; 85610; 86644; 86645; 86663; 86664; 86665; 86738; 86777; 88305; 88341; 88342; 93005; 96374; 96375; 99285

== ENCOUNTER → 2021-07-07 | Outpatient (CLI) | payer MEDICARE, BC ==
--- NOTE | 2021-07-08 10:00 | ECHOF ---
Referral Reason:Z01.818 pre chemo MEASUREMENTS -------- HEIGHT: 132.1 cm WEIGHT: 49.9 kg BP: RVIDd: 2.3 cm (< 3.3) IVSd: 1.1 cm (0.6 - 1.1) LVIDd: 3.1 cm (3.9 - 5.3) LVPWd: 1.2 cm (0.6 - 1.1) IVSs: 1.2 cm LVIDs: 1.9 cm LVPWs: 1.4 cm LAESV Index (A-L): 19.52 ml/m Ao Diam: 2.4 cm (2.0 - 3.7) AV Cusp: 1.6 cm (1.5 - 2.6) MV EXCURSION: 11.714 mm (> 18.000) MV EF SLOPE: 47 mm/s (70 - 150) EPSS: 0.3 cm MV E John: 0.64 m/s MV DecT: 163 ms MV A John: 0.97 m/s MV E/A Ratio: 0.66 RAP: 5.00 mmHg RVSP: 25.25 mmHg FINDINGS -------- Sinus rhythm. This was a technically adequate study. The left ventricular size is normal. There is borderline concentric left ventricular hypertrophy. Overall left ventricular systolic function is normal with, an EF between 55 - 60 %. The diastolic filling pattern is normal for the age of the patient 12.12. The right ventricle is mildly enlarged. Normal LA size by volume 22+/-6 ml/m2. The right atrial size is normal. Interatrial and interventricular septum intact. There is mild aortic valve sclerosis. There is no evidence of aortic regurgitation. There is no e vidence of aortic stenosis. There is trace mitral regurgitation. Mild tricuspid regurgitation present. There is no evidence of pulmonary hypertension. The right v entricular systolic pressure, as measured by Doppler, is 25.25mmHg. There is no pulmonic regurgitation present. The aortic root size is normal. Normal inferior vena cava with normal inspiratory collapse consistent with estimated right atrial pre ssure of 5 mmHg. There is no pericardial effusion. CONCLUSIONS -------- 1. The left ventricular size is normal. 2. There is borderline concentric left ventricular hypertrophy. 3. Overall left ventricular systolic function is normal with, an EF between 55 - 60 %. 4. The diastolic filling pattern is normal for the age of the patient 12.12 5. The right ventricle is mildly enlarged. 6. There is mild aortic valve sclerosis. 7. There is trace mitral regurgitation. 8. Mild tricuspid regurgitation present. SHOE STOCK ASSOCIATE: Kyara Teresa RDCS
== END | disposition home or self-care (01) ==
LOC: RADECHMAIN 15:10
PROVIDERS: ATTEND Internal Medicine Hematology & Oncology
DX: Z01.818 Encounter for other preprocedural examination (principal); I07.1 Rheumatic tricuspid insufficiency; I35.8 Other nonrheumatic aortic valve disorders
CPT/HCPCS: 93306